=== PATIENT | female | born 1990 | race Caucasian/White ===

== ENCOUNTER → 2018-12-15 17:25 | Outpatient (CLI) | payer MEDICAID, SELFPAY | PROVIDERS: Visit Provider Nurse Practitioner Obstetrics & Gynecology | DX: Z01.419 Encounter for gynecological examination (general) (routine) without abnormal findings (principal) | CPT/HCPCS: 87086; 87088; 87186 ==

== ENCOUNTER → 2021-09-30 10:59 | Outpatient (CLI) | payer MEDICAID, SELFPAY ==
--- NOTE | 2021-09-30 10:59 | US_ITS ---
FINAL REPORT CLINICAL HISTORY: Right upper quad pain/ nausea FINDINGS: Sonographic images of the right upper quadrant were obtained. The pancreas is partially obscured. The liver has increased echogenicity consistent with mild fatty infiltration. There are multiple echogenic foci within the gallbladder consistent with multiple gallstones. There is no evidence of biliary ductal dilatation.The common duct measures 3 mm. Limited images of the right kidney are unremarkable. IMPRESSION: Mild fatty infiltration of the liver. Multiple gallstones within the gallbladder. Reviewed, Interpreted and Dictated by Dieter Arenas III, MD Transcribed by Debbie Zepeda Authenticated by Dieter Arenas III, MD on 09/30/2021 01:14:22 PM [facility]
== END ==
PROVIDERS: PCP Nurse Practitioner Family; Visit Provider Surgery
DX: R10.11 Right upper quadrant pain (principal)
CPT/HCPCS: 76705

== ENCOUNTER → 2021-10-19 14:30 | Outpatient (CLI) | payer MEDICAID, SELFPAY ==
[2021-10-19 16:45] LABS: Basophils # 0.1 K/mm3 (0-0.2); Basophils % 1.4 % (0.1-2.0); Eosinophils # 0.1 K/mm3 (0.0-0.4); Eosinophils % 1.2 % (0.1-12.0); Hematocrit 42.1 % (37.0-47.0); Hemoglobin 13.9 g/dL (12.2-16.2); Lymphocytes # 4.1 K/mm3 (0.7-4.5); Lymphocytes % 58.9 % (10-50); Mean Corpuscular HGB Conc 33.1 g/dL (31.8-35.4); Mean Corpuscular Hemoglobin 33.2 pg (27.0-31.2); Mean Corpuscular Volume 100.3 fl (81-99); Mean Platelet Volume 8.3 fl (7.4-10.4); Monocytes # 0.2 K/mm3 (0.1-1.0); Monocytes % 3.1 % (1.7-9.3); Neutrophils # 2.5 K/mm3 (1.8-7.8); Neutrophils % 35.4 % (37.0-80.0); Platelet Count 212 K/mm3 (142-424); Red Cell Distribution Width 14.6 % (11.5-17.5)
[2021-10-19 16:49] LABS: MANUAL DIFFERENTIAL MANUAL DIFFERENTIAL (MANUAL DIFF)
[2021-10-19 17:00] LABS: Urine Pregnancy, HCG Qual. Negative (Negative)
[2021-10-19 17:03] LABS: Chloride 105 mmol/L (98-107); Potassium 3.8 mmoL/L (3.5-5.1); Sodium 137 mmol/L (136-145)
[2021-10-19 17:05] LABS: Blood Urea Nitrogen 5 mg/dl (7-17); Estimated Glomerular Filt Rate 117 ml/min (>60); GFR (African American) 142 ML/MIN (>60)
[2021-10-19 17:06] LABS: Alanine Aminotransferase 30 U/L (12-78); Albumin Level 4.2 g/dl (3.5-5.0); Albumin/Globulin Ratio 1.3 (1.1-1.8); Alkaline Phosphatase 99 U/L (38-126); Anion Gap 10.8 mEq/L (5-15); Aspartate Amino Transferase 31 U/L (14-36); Bilirubin,Total 0.6 mg/dl (0.2-1.3); Calcium 8.7 mg/dl (8.4-10.2); Carbon Dioxide 25 mmol/L (22.0-30.0); Globulin 3.2 g/dL (1.3-3.2); Glucose 96 mg/dl (74-100); Lipase 91 U/L (23-300); Total Protein,Serum 7.4 g/dl (6.3-8.2)
[2021-10-19 18:06] LABS: Lymphocytes % 61 % (10-50); Macrocytosis 1+; Monocytes % 1 % (2-9); Neutrophils % 36 % (42-76); Platelet Estimate Normal; Total Cells Counted 100
== END ==
PROVIDERS: PCP Family Medicine; Visit Provider Surgery
DX: Z01.812 Encounter for preprocedural laboratory examination (principal); K80.20 Calculus of gallbladder without cholecystitis without obstruction
CPT/HCPCS: 36415; 80053; 81025; 83690; 85007; 85025

== ENCOUNTER → 2022-04-17 06:27 | Outpatient (CLI) | payer MEDICAID, SELFPAY | PROVIDERS: Visit Provider Obstetrics & Gynecology | DX: N39.0 Urinary tract infection, site not specified (principal); B96.29 Other Escherichia coli [E. coli] as the cause of diseases classified elsewhere | CPT/HCPCS: 87086; 87088; 87186 ==

== ENCOUNTER → 2022-04-22 11:54 | Outpatient (CLI) | payer MEDICAID, SELFPAY ==
[2022-04-22 12:34] LABS: Basophils # 0.1 K/mm3 (0-0.2); Basophils % 1.4 % (0.1-2.0); Eosinophils # 0.1 K/mm3 (0.0-0.4); Eosinophils % 0.9 % (0.1-12.0); Hematocrit 41.5 % (37.0-47.0); Hemoglobin 13.2 g/dL (12.2-16.2); Lymphocytes # 3.9 K/mm3 (0.7-4.5); Lymphocytes % 60.6 % (10-50); Mean Corpuscular HGB Conc 31.9 g/dL (31.8-35.4); Mean Corpuscular Hemoglobin 32.5 pg (27.0-31.2); Mean Corpuscular Volume 101.8 fl (81-99); Mean Platelet Volume 8.4 fl (7.4-10.4); Monocytes # 0.2 K/mm3 (0.1-1.0); Monocytes % 2.6 % (1.7-9.3); Neutrophils # 2.2 K/mm3 (1.8-7.8); Neutrophils % 34.6 % (37.0-80.0); Platelet Count 199 K/mm3 (142-424); Red Blood Count 4.07 M/mm3 (4.20-5.40); Red Cell Distribution Width 14.7 % (11.5-17.5); White Blood Count 6.5 K/mm3 (4.8-10.8)
[2022-04-22 12:36] LABS: MANUAL DIFFERENTIAL MANUAL DIFFERENTIAL (MANUAL DIFF)
[2022-04-22 13:00] LABS: Hemoglobin A1C 5.1 % (4.0-6.0); Lymphocytes % 60 % (10-50); Monocytes % 5 % (2-9); Neutrophils % 35 % (42-76); Total Cells Counted 100
[2022-04-22 13:01] LABS: Platelet Estimate Normal; RBC Morphology Normal
[2022-04-22 13:11] LABS: Chloride 102 mmol/L (98-107); Potassium 3.9 mmoL/L (3.5-5.1); Sodium 139 mmol/L (136-145)
[2022-04-22 13:14] LABS: Alanine Aminotransferase 16 U/L (12-78); Albumin Level 4.3 g/dl (3.5-5.0); Albumin/Globulin Ratio 1.5 (1.1-1.8); Alkaline Phosphatase 96 U/L (38-126); Anion Gap 13.9 mEq/L (5-15); Aspartate Amino Transferase 23 U/L (14-36); Bilirubin,Total 0.4 mg/dl (0.2-1.3); Blood Urea Nitrogen 8 mg/dl (7-17); Carbon Dioxide 27 mmol/L (22.0-30.0); Estimated Glomerular Filt Rate 98 ml/min (>60); GFR (African American) 118 ML/MIN (>60); Globulin 2.8 g/dL (1.3-3.2); Glucose 101 mg/dl (74-100); Total Protein,Serum 7.1 g/dl (6.3-8.2)
== END ==
PROVIDERS: PCP Family Medicine; Visit Provider Obstetrics & Gynecology
DX: R35.0 Frequency of micturition (principal); K80.20 Calculus of gallbladder without cholecystitis without obstruction
CPT/HCPCS: 36415; 80053; 83036; 85007; 85025

== ENCOUNTER → 2022-05-24 11:55 | Outpatient (CLI) | payer MEDICAID, SELFPAY ==
[2022-05-24 12:14] LABS: Basophils % 0.4 % (0.1-2.0); Eosinophils # 0.1 K/mm3 (0.0-0.4); Eosinophils % 0.9 % (0.1-12.0); Hematocrit 41.1 % (37.0-47.0); Hemoglobin 13.1 g/dL (12.2-16.2); Lymphocytes # 3.7 K/mm3 (0.7-4.5); Lymphocytes % 60.4 % (10-50); Mean Corpuscular HGB Conc 31.9 g/dL (31.8-35.4); Mean Corpuscular Hemoglobin 32.5 pg (27.0-31.2); Mean Platelet Volume 8.9 fl (7.4-10.4); Monocytes # 0.2 K/mm3 (0.1-1.0); Monocytes % 3.1 % (1.7-9.3); Neutrophils # 2.2 K/mm3 (1.8-7.8); Neutrophils % 35.2 % (37.0-80.0); Platelet Count 194 K/mm3 (142-424); Red Blood Count 4.03 M/mm3 (4.20-5.40); White Blood Count 6.2 K/mm3 (4.8-10.8)
[2022-05-24 12:19] LABS: MANUAL DIFFERENTIAL MANUAL DIFFERENTIAL (MANUAL DIFF)
[2022-05-24 12:39] LABS: Chloride 99 mmol/L (98-107); Lymphocytes % 74 % (10-50); Neutrophils % 26 % (42-76); Total Cells Counted 100
[2022-05-24 12:40] LABS: Potassium 4.1 mmoL/L (3.5-5.1); Sodium 138 mmol/L (136-145)
[2022-05-24 12:42] LABS: Alanine Aminotransferase 24 U/L (12-78); Anion Gap 16.1 mEq/L (5-15); Aspartate Amino Transferase 29 U/L (14-36); Blood Urea Nitrogen 11 mg/dl (7-17); Carbon Dioxide 27 mmol/L (22.0-30.0); Estimated Glomerular Filt Rate 117 ml/min (>60); GFR (African American) 141 ML/MIN (>60); Platelet Estimate Normal; RBC Morphology Normal
[2022-05-24 12:43] LABS: Albumin Level 4.1 g/dl (3.5-5.0); Albumin/Globulin Ratio 1.6 (1.1-1.8); Alkaline Phosphatase 86 U/L (38-126); Bilirubin,Total 0.4 mg/dl (0.2-1.3); Calcium 9.2 mg/dl (8.4-10.2); Globulin 2.6 g/dL (1.3-3.2); Glucose 85 mg/dl (74-100); Total Protein,Serum 6.7 g/dl (6.3-8.2)
[2022-05-24 13:06] LABS: HCG,Quantitative < 2 mIU/ml (0-5.42)
== END ==
PROVIDERS: PCP Obstetrics & Gynecology; Visit Provider Obstetrics & Gynecology
DX: R87.613 High grade squamous intraepithelial lesion on cytologic smear of cervix (HGSIL) (principal); Z01.812 Encounter for preprocedural laboratory examination
CPT/HCPCS: 36415; 80053; 84702; 85007; 85025

== ENCOUNTER 2023-08-27 14:53 | Outpatient (CLI) | payer MEDICAID, SELFPAY ==
[2023-08-27 15:51] LABS: Basophils % 0.4 % (0.1-2.0); Eosinophils # 0.1 K/mm3 (0.0-0.4); Eosinophils % 0.7 % (0.1-12.0); Hematocrit 37.1 % (37.0-47.0); Hemoglobin 12.9 g/dL (12.2-16.2); Lymphocytes # 4.6 K/mm3 (0.7-4.5); Lymphocytes % 63.2 % (10-50); Mean Corpuscular HGB Conc 34.9 g/dL (31.8-35.4); Mean Corpuscular Hemoglobin 32.8 pg (27.0-31.2); Mean Corpuscular Volume 94.1 fl (81-99); Mean Platelet Volume 8.6 fl (7.4-10.4); Monocytes # 0.3 K/mm3 (0.1-1.0); Monocytes % 3.4 % (1.7-9.3); Neutrophils # 2.3 K/mm3 (1.8-7.8); Neutrophils % 32.2 % (37.0-80.0); Platelet Count 184 K/mm3 (142-424); Red Blood Count 3.94 M/mm3 (4.20-5.40); Red Cell Distribution Width 14.8 % (11.5-17.5); White Blood Count 7.2 K/mm3 (4.8-10.8)
[2023-08-27 15:56] LABS: MANUAL DIFFERENTIAL MANUAL DIFFERENTIAL (MANUAL DIFF)
[2023-08-27 16:43] LABS: Lymphocytes % 58 % (10-50); Monocytes % 8 % (2-9); Neutrophils % 34 % (42-76); Total Cells Counted 100
[2023-08-27 16:44] LABS: Anisocytosis 1+; Macrocytosis 1+; Platelet Estimate Normal
[2023-08-27 16:54] LABS: Thyroid Stimulating Hormone 1.67 uIU/mL (0.465-4.68)
== END 2023-08-27 23:59 ==
LOC: LAB 14:54
PROVIDERS: PCP Nurse Practitioner Family; Visit Provider Obstetrics & Gynecology
DX: N93.9 Abnormal uterine and vaginal bleeding, unspecified (principal); Z79.899 Other long term (current) drug therapy
CPT/HCPCS: 36415; 84443; 85007; 85025

== ENCOUNTER 2023-09-01 14:01 | Outpatient (CLI) | payer MEDICAID, SELFPAY ==
--- NOTE | 2023-09-01 14:02 | US_ITS ---
PROCEDURE: US TRANSVAGINAL CLINICAL INDICATION: abnormal uterine bleeding COMPARISON: No exams were available for comparison FINDINGS: Transvaginal sonographic images of the pelvis were obtained. UTERUS: 6.9 cm x 3.2cmx 2.9 cm anteverted with a combined endometrial thickness of 7mm. LEFT OVARY: 2.7x1.9 cm. There is a follicle in the left ovary measuring 2.1 cm x 1.7 cm x 1.8 cm. RIGHT OVARY: 2.2cmx 1.9 cmx1.4cm with a volume of 3.1ml. Both ovaries are seen and appear normal. Doppler flow to both ovaries are seen. There is no fluid in the cul-de-sac. IMPRESSION: 1. Anteverted uterus normal in shape and size. The endometrium is normal thickness. 2. Both ovaries are seen and appear normal. There is a 2.1 cm follicle on the left ovary. 3. No fluid in the cul-de-sac. Dictated by: Timoteo Bhandari MD 09/01/2023 15:58 Timoteo Bhandari MD in [place] 09/01/2023 15:58
== END 2023-09-01 23:59 ==
LOC: RAD 14:02
PROVIDERS: PCP Nurse Practitioner Family; Visit Provider Obstetrics & Gynecology
DX: N93.9 Abnormal uterine and vaginal bleeding, unspecified (principal)
CPT/HCPCS: 76830

== ENCOUNTER 2023-10-13 16:47 | Emergency (ER) | payer MEDICAID, SELFPAY ==
[2023-10-13 17:05] VITALS: BP 152/89; PULSE 115; RESP 18; TEMP 36.8; O2SAT 97; BMI 36.6
--- NOTE | 2023-10-13 17:33 | EXP.UTC ---
Discharge Plan Disposition Patient Disposition: Home, Self-Care Condition: Good Prescriptions Prescriptions: New amoxicillin-pot clavulanate 875-125 mg Tablet 1 tab PO Q12H 7 Days Qty: 14 0RF No Action quetiapine 50 mg tablet 50 mg PO HS Patient Comments: TAKE 1 TABLET BY MOUTH ONCE DAILY AT BEDTIME FOR 30 DAYS aripiprazole 10 mg tablet 10 mg PO DAILY buspirone 7.5 mg tablet 7.5 mg PO BID hydroxyzine pamoate 50 mg capsule 50 mg PO BID PRN (Reason: .) Patient Comments: TAKE 1 CAPSULE BY MOUTH TWICE DAILY NEEDED FOR ANXIETY AND PANIC ATTACKS cetirizine 10 mg tablet 10 mg PO DAILY sertraline 50 mg tablet 50 mg PO DAILY Lo Loestrin Fe 1 mg-10 mcg (24)/10 mcg (2) tablet 1 tab PO DAILY Qty: 84 3RF pantoprazole 40 mg tablet,delayed release (DR/EC) 40 mg PO DAILY Patient Comments: TAKE 1 TABLET BY MOUTH ONCE DAILY FOR 90 DAYS Referrals Follow up/Referrals: Bernard Zepeda APRN [Primary Care Provider] - See instructions Activity Restrictions/Add. Instructions Additional Instructions/Restrictions: Keep wounds clean and dry Take antibiotics as prescribed Follow up with your Family Doctor if any signs of infection including but not limited too redness, drainage, streaks Clinical Impressions Clinical Impression: Animal bite Instructions Patient Instructions: DI for Animal Bites, DI for Dog Bite Dis[place] ED [place] Vallada[place] [facility] [place] Stated complaint: AO 10/13/23 bite by a dog Mode of Arrival: Ambulatory Source of Information: Patient Limitations: No Limitations Time Seen by Provider: 10/13/23 17:33 Description of Symptoms (Recalled from Triage Doc. by RN): Pt was walking down the street and was attacked by two dogs. She has abrasions on back of left leg. HEENT Symptoms (Recalled from RN notes): No Resp Symptoms (Recalled from RN notes): No Skin Symptoms (Recalled from RN notes): Yes MS Symptoms (Recalled from RN notes): No Functional Status (Recalled from RN notes): n/a History of Present Illness Provider Complaint: Patient states that she was walking on the road when neighbor let out his two dogs and they came at her and she was trying to climb a pole to get away and they bite her several times on her left calf area and has an abrasion on her right ankle States that she wasnt sure when her last tetanus was and she wanted someone to look at it states that she only had minimal bleeding Related Data Home Medications Medication Instructions Recorded Confirmed aripiprazole 10 mg tablet 10 mg PO DAILY 08/27/23 10/13/23 buspirone 7.5 mg tablet 7.5 mg PO BID 08/27/23 10/13/23 cetirizine 10 mg tablet 10 mg PO DAILY 08/27/23 10/13/23 hydroxyzine pamoate 50 mg capsule 50 mg PO BID PRN . 08/27/23 10/13/23 quetiapine 50 mg tablet 50 mg PO HS 08/27/23 10/13/23 sertraline 50 mg tablet 50 mg PO DAILY 09/25/23 10/13/23 pantoprazole 40 mg tablet,delayed 40 mg PO DAILY 10/13/23 10/13/23 release Previous Rx's Medication Instructions Recorded Lo Loestrin Fe 1 mg-10 mcg (24)/10 1 tab PO DAILY #84 tabs 09/25/23 mcg (2) tablet (norethindrone-e.estradiol-iron) amoxicillin 875 mg-potassium 1 tab PO Q12H 7 days #14 tabs 10/13/23 clavulanate 125 mg tablet Allergies Allergy/AdvReac Type Severity Reaction Status Date / Time lavender (Lavandula Allergy Unknown Verified 10/13/23 17:25 angustifolia) latex Allergy Verified 10/13/23 17:25 Worker's Comp Is this a Worker's Comp case?: No [facility] Disclaimer: The information contained in this section may have been updated after the patient was seen, as this information can be updated by other users. Medical History Abnormal uterine bleeding Anxiety and depression HSIL (high grade squamous intraepithelial lesion) on Pap smear of cervix Pap smear of cervix with ASCUS, cannot exclude HGSIL Increased urinary frequency Surgical History Hx of wisdom tooth extraction Family History Other Family history of anxiety disorder Family history of depression Family history of diabetes mellitus Family history of essential hypertension Social History Smoking Status: Current every day smoker alcohol intake: never substance use type: denies use current occupational status: employed and unemployed Travel in the last 8 weeks: None ROS Obtained: Yes All systems reviewed & no additional complaints except as documented and Yes Systems reviewed as appropriate & no additional complaints except as documented Constitutional Constitutional: Reports system reviewed and no additional complaints, except as documented and Reports as per HPI ENT Ears, Nose, Mouth, and Throat: Reports system reviewed and no additional complaints, except as documented and Reports as per HPI Cardiovascular Cardiovascular: Reports system reviewed and no additional complaints, except as documented and Reports as per HPI Respiratory Respiratory: Reports system reviewed and no additional complaints, except as documented and Reports as per HPI Gastrointestinal Gastrointestingal: Reports system reviewed and no additional complaints, except as documented and as per HPI Musculoskeletal Musculoskeletal: Reports system reviewed and no additional complaints, except as documented and Reports as per HPI Integumentary/Breasts Skin/Breast: Reports system reviewed and no additional complaints, except as documented and Reports as per HPI Comments: dog bites on her left calf and upper leg and abrasion on her right ankle from dog attack Physical Exam General General appearance: alert and in no apparent distress ENT ENT exam: Present mucous membranes moist Respiratory Respiratory exam: Present normal lung sounds bilaterally; Absent respiratory distress or wheezes Cardiovascular Cardiovascular exam: Present regular rate, normal rhythm and normal heart sounds Neurological Exam Neurological exam: Present alert, oriented X3 and normal gait Skin Skin exam: Present other Expanded Skin Exam Body image: 1. small bite noted no bleeding mild bruising and mild swelling 2. abrasion noted from dog bite noted no active bleeding 3. small superficial abrasion noted no bleeding Medical Decision Making Jim Inquiry Pt receiving controlled substance: No Jim was queried for this patient: No Vital Signs: 10/13/23 17:05 Temperature 98.2 F Temperature Source Oral Pulse Rate [Right Radial] 115 H Respiratory Rate 18 Blood Pressure [Right Arm] 152/89 H Blood Pressure Mean [Right Arm] 110 Blood Pressure Source [Right Arm] Automatic Cuff Blood Pressure Position [Right Arm] Sitting 02 Sat by Pulse Oximetry 97 Oxygen Delivery Method Room Air Radiology Data #1: Image(s): Tib/Fib Image Reviewed: Yes I have reviewed radiologist's interpretation FINDINGS: Bones/joints: There is no evidence of acute fracture or dislocation. Joint spaces appear preserved. Soft tissues: No significant soft tissue edema. No subcutaneous emphysema or radiopaque foreign bodies. IMPRESSION: No acute posttraumatic osseous injury. Medical Decision Narrative: Adacel tdap discussed with pharmacy to make sure latex free advised is latex free
--- NOTE | 2023-10-13 17:40 | XR_ITS ---
PROCEDURE INFORMATION: Exam: XR Left Tibia and Fibula Exam date and time: 10/13/2023 5:40 PM Age: 33 years old Clinical indication: Injury or trauma; Other: Dog bite; Laceration; Lower leg; Left; Foreign body involvement not specified TECHNIQUE: Imaging protocol: Radiologic exam of the left tibia and fibula. Views: 2 views. COMPARISON: No relevant prior studies available. FINDINGS: Bones/joints: There is no evidence of acute fracture or dislocation. Joint spaces appear preserved. Soft tissues: No significant soft tissue edema. No subcutaneous emphysema or radiopaque foreign bodies. IMPRESSION: No acute posttraumatic osseous injury.
[2023-10-13] MEDS: TET/DIPHTH/PERT-ADULT 0.5ML SYRINGE 0.5 ML IM (18:23)
[2023-10-13 18:46] VITALS: BP 152/89; PULSE 115; RESP 18; TEMP 36.8; O2SAT 97
== END 2023-10-13 18:45 | disposition home or self-care (01) ==
PROVIDERS: Emergency Provider Nurse Practitioner; PCP Nurse Practitioner Family
DX: S81.852A Open bite, left lower leg, initial encounter (principal); F17.210 Nicotine dependence, cigarettes, uncomplicated; W54.0XXA Bitten by dog, initial encounter; Z23 Encounter for immunization
CPT/HCPCS: 73590; 90471; 90715; 99204; 99212; G0463

== ENCOUNTER 2024-01-14 16:02 | Emergency (ER) | payer MEDICAID, SELFPAY ==
[2024-01-14 16:02] VITALS: BP 162/87; PULSE 122; RESP 18; TEMP 37; O2SAT 99; BMI 35.9
--- NOTE | 2024-01-14 16:08 | XR_ITS ---
PROCEDURE INFORMATION: Exam: XR Right Foot Exam date and time: 01/14/2024 4:34 PM Age: 33 years old Clinical indication: Injury or trauma; Fall; Blunt trauma; Foot; Right TECHNIQUE: Imaging protocol: Radiologic exam of the right foot. Views: 1 or 2 views. COMPARISON: CR XR TIBIA FIBULA RT 2V 01/14/2024 4:33 PM FINDINGS: Bones/joints: Normal. Soft tissues: Normal. IMPRESSION: No acute findings.
--- NOTE | 2024-01-14 16:08 | XR_ITS ---
PROCEDURE INFORMATION: Exam: XR Left Knee Exam date and time: 01/14/2024 4:37 PM Age: 33 years old Clinical indication: Injury or trauma; Fall; Blunt trauma; Knee; Left TECHNIQUE: Imaging protocol: Radiologic exam of the left knee. Views: 3 views. COMPARISON: CR XR TIBIA FIBULA LT 2V 10/13/2023 5:40 PM FINDINGS: Bones/joints: Normal. Soft tissues: Normal. IMPRESSION: No acute findings.
--- NOTE | 2024-01-14 16:08 | XR_ITS ---
PROCEDURE INFORMATION: Exam: XR Right Tibia and Fibula Exam date and time: 01/14/2024 4:33 PM Age: 33 years old Clinical indication: Injury or trauma; Fall; Blunt trauma; Lower leg; Right TECHNIQUE: Imaging protocol: Radiologic exam of the right tibia and fibula. Views: 2 views. COMPARISON: CR XR ANKLE RT MIN 3V 01/14/2024 4:32 PM FINDINGS: Bones/joints: Normal. Soft tissues: Normal. IMPRESSION: No acute findings.
--- NOTE | 2024-01-14 16:08 | XR_ITS ---
PROCEDURE INFORMATION: Exam: XR Left Knee Exam date and time: 01/14/2024 4:40 PM Age: 33 years old Clinical indication: Injury or trauma; Fall; Blunt trauma; Knee; Left TECHNIQUE: Imaging protocol: Radiologic exam of the left knee. Views: 1 or 2 views. COMPARISON: CR XR KNEE LT 3V 01/14/2024 4:37 PM FINDINGS: Bones/joints: The osseous structures appear intact with no evidence of acute fracture, dislocation, or malalignment. Joint spaces are preserved. No abnormal bone density or destructive lesions are noted. Soft tissues: Soft tissues appear unremarkable. IMPRESSION: At the time of imaging, there is no evidence for acute osseous abnormalities.
--- NOTE | 2024-01-14 16:08 | ED_ITS ---
<Statement entered by Sheila Clifford MD - 01/14/24 23:00> I was consulted by the JJ, and we discussed the complexity of the problems being addressed. I approved the treatment and management plan for this patient's care in the emergency department, thus performing a substantive portion of the medical decision making. Sheila Clifford MD, KIRILL, FACEP Discharge Plan Disposition Patient Disposition: Home, Self-Care Condition: Good Chief Complaint: Fall Prescriptions Prescriptions: No Action quetiapine 50 mg tablet 50 mg PO HS Patient Comments: TAKE 1 TABLET BY MOUTH ONCE DAILY AT BEDTIME FOR 30 DAYS aripiprazole 10 mg tablet 10 mg PO DAILY buspirone 7.5 mg tablet 7.5 mg PO BID hydroxyzine pamoate 50 mg capsule 50 mg PO BID PRN (Reason: .) Patient Comments: TAKE 1 CAPSULE BY MOUTH TWICE DAILY NEEDED FOR ANXIETY AND PANIC ATTACKS cetirizine 10 mg tablet 10 mg PO DAILY sertraline 50 mg tablet 50 mg PO DAILY Lo Loestrin Fe 1 mg-10 mcg (24)/10 mcg (2) tablet 1 tab PO DAILY Qty: 84 3RF pantoprazole 40 mg tablet,delayed release (DR/EC) 40 mg PO DAILY Patient Comments: TAKE 1 TABLET BY MOUTH ONCE DAILY FOR 90 DAYS amoxicillin-pot clavulanate 875-125 mg Tablet 1 tab PO Q12H 7 Days Qty: 14 0RF Activity Restrictions/Add. Instructions Additional Instructions/Restrictions: You may clean your abrasion with soap and water as needed place bacitracin or Neosporin over top for comfort. May take Tylenol alternating every 4 hours with Motrin as needed for pain and swelling. Follow-up with your PCP or return to ER for any worsening signs or symptoms as needed Clinical Impressions Clinical Impression: Right ankle sprain Qualifiers: Encounter type: initial encounter Involved ligament of ankle: unspecified ligament Qualified Code(s): S93.401A - Sprain of unspecified ligament of right ankle, initial encounter Abrasion of knee, left Qualifiers: Encounter type: initial encounter Qualified Code(s): S80.212A - Abrasion, left knee, initial encounter Instructions Patient Instructions: DI for Ankle Sprain, DI for Abrasion Discharge ED Provider: Sheila Clifford General Adult [facility] General Chief complaint: Fall Stated complaint: knee and ankle pain fall Time Seen by Provider: 01/14/24 16:08 History of Present Illness HPI narrative: Patient presents for evaluation of a fall. Patient states that she was walking to a local convenience store and tripped over the curb injuring her right ankle and skinning her left knee. Patient states it is difficult to bear weight on the right ankle and that her toes are numb . She denies striking her head loss of consciousness chest pain fever chills hemoptysis hematochezia melena nausea vomit diarrhea. Related Data Home Medications Medication Instructions Recorded Confirmed aripiprazole 10 mg tablet 10 mg PO DAILY 08/27/23 10/13/23 buspirone 7.5 mg tablet 7.5 mg PO BID 08/27/23 10/13/23 cetirizine 10 mg tablet 10 mg PO DAILY 08/27/23 10/13/23 hydroxyzine pamoate 50 mg capsule 50 mg PO BID PRN . 08/27/23 10/13/23 quetiapine 50 mg tablet 50 mg PO HS 08/27/23 10/13/23 sertraline 50 mg tablet 50 mg PO DAILY 09/25/23 10/13/23 pantoprazole 40 mg tablet,delayed 40 mg PO DAILY 10/13/23 10/13/23 release Previous Rx's Medication Instructions Recorded Lo Loestrin Fe 1 mg-10 mcg (24)/10 1 tab PO DAILY #84 tabs 09/25/23 mcg (2) tablet (norethindrone-e.estradiol-iron) amoxicillin 875 mg-potassium 1 tab PO Q12H 7 days #14 tabs 10/13/23 clavulanate 125 mg tablet Allergies Allergy/AdvReac Type Severity Reaction Status Date / Time lavender (Lavandula Allergy Unknown Verified 01/14/24 16:11 angustifolia) latex Allergy Verified 01/14/24 16:11 [facility] Disclaimer: The information contained in this section may have been updated after the patient was seen, as this information can be updated by other users. Medical History Abnormal uterine bleeding Anxiety and depression HSIL (high grade squamous intraepithelial lesion) on Pap smear of cervix Pap smear of cervix with ASCUS, cannot exclude HGSIL Increased urinary frequency Surgical History Hx of wisdom tooth extraction Family History Other Family history of anxiety disorder Family history of depression Family history of diabetes mellitus Family history of essential hypertension Social History Smoking Status: Current every day smoker alcohol intake: never substance use type: denies use current occupational status: employed and unemployed Travel in the last 8 weeks: None ROS Obtained: Yes Systems reviewed as appropriate & no additional complaints except as documented Physical Exam General General appearance: alert and in no apparent distress Respiratory Respiratory exam: Present normal lung sounds bilaterally Cardiovascular Cardiovascular exam: Present regular rate and normal rhythm Expanded Lower Extremity Exam Right: Ankle image: 2 1. Focal area of pain and edema but no bony deformity palpated current Top foot image: 2 1. Tender to palpations focally no obvious bony deformity palpated Left: Leg image: 2 1. Superficial abrasion and tenderness over the patella Neurological Exam Neurological exam: Present alert and oriented X3 Medical Decision Making Jim Inquiry Pt receiving controlled substance: No Vital Signs: 01/14/24 16:02 Temperature 98.6 F Temperature Source Oral Pulse Rate [Left Radial] 122 H Respiratory Rate 18 Blood Pressure [Right Arm] 162/87 H Blood Pressure Mean [Right Arm] 112 Blood Pressure Source [Right Arm] Automatic Cuff Blood Pressure Position [Right Arm] Sitting 02 Sat by Pulse Oximetry 99 Oxygen Delivery Method Room Air Lab Data Lab Results 01/14/24 16:20: Urine HCG, Qual Negative Orders (Tests/Meds): ED MEDICATIONS Discontinued Medications Generic Name Dose Route Start Last Admin Trade Name Alicia PRN Reason Stop Dose Admin Acetaminophen 1,000 mg 01/14/24 16:10 01/14/24 16:13 Acetaminophen 500mg Tab PO 01/14/24 16:11 1,000 mg ONCE ONE Administration Ibuprofen 800 mg 01/14/24 16:09 01/14/24 16:12 Ibuprofen 400 Mg Tablet PO 01/14/24 16:10 800 mg ONCE ONE Administration ORDERS Category Date Time Status Ankle XR -Right minimum 3 Views [XR ankle RT min 3V] Exams 01/14/24 16:08 Taken Stat Foot XR right 2 views [XR foot RT 2V] Stat Exams 01/14/24 16:08 Taken Knee XR left 3 views [XR knee LT 3V] Stat Exams 01/14/24 16:08 Taken Patella XR left 2 views [XR patella LT 2V] Stat Exams 01/14/24 16:08 Taken Tibia/fibula XR right 2 views [XR tibia fibula RT 2V] Exams 01/14/24 16:08 Taken Stat Urine , HCG Qual. Stat Lab 01/14/24 16:20 Completed Medical Decision Narrative: In summary patient is a 33-year-old female who presents to the emergency department for evaluation of a fall with right ankle pain and left knee pain. Patient is hemodynamically stable upon arrival, afebrile. Physical exam is remarkable for tenderness to palpation at the lateral malleolus and posteriorly to the same with edema and ecchymosis noted but no palpable bony deformity noted. Patient also has tenderness to palpation over the bridge of the foot but she has positive DP and PT that were marked by myself. Patient is neurovascular intact distally. Patient also has a superficial abrasion of the left knee but tenderness to palpation over the patella. Patella appears to be in normal position and appears to be intact grossly to exam.. Differential diagnosis includes ankle sprain versus fracture on the right and superficial abrasion versus possible fracture of the knee and/or patella of the left versus contusion. Initial workup will be conducted with plain film x-rays. Initial interventions include acetaminophen Motrin. Initial workup reviewed by me shows no acute fracture via my informal interpretation prior to radiology read. Upon repeat evaluation patient is able to ambulate without assistance. Given this patient is appropriate for discharge with follow-up with her PCP as needed return to ER for any worsening signs or symptoms. Critical Care Critical Care Time Critical Care Time: No
--- NOTE | 2024-01-14 16:08 | XR_ITS ---
PROCEDURE INFORMATION: Exam: XR Right Ankle Exam date and time: 01/14/2024 4:32 PM Age: 33 years old Clinical indication: Injury or trauma; Fall; Blunt trauma; Ankle; Right TECHNIQUE: Imaging protocol: Radiologic exam of the right ankle. Views: 3 or more views. COMPARISON: No relevant prior studies available. FINDINGS: Bones/joints: Multiple views were obtained. The osseous structures appear intact with no evidence of acute fracture, dislocation, or malalignment. Joint spaces are preserved. No abnormal bone density or destructive lesions are noted. Soft tissues: Soft tissue swelling is observed, and further clinical correlation is advised. IMPRESSION: At the time of imaging, the skeletal radiograph demonstrates no acute osseous abnormalities but does show soft tissue swelling.
[2024-01-14] MEDS: IBUPROFEN 400 MG TABLET 800 MG PO (16:12)
[2024-01-14] MEDS: ACETAMINOPHEN 500MG TAB 1000 MG PO (16:13)
[2024-01-14 16:31] LABS: Urine Pregnancy, HCG Qual. Negative (Negative)
--- NOTE | 2024-01-14 16:41 | PC.NURSE ---
PT TO XR
--- NOTE | 2024-01-14 16:55 | PC.NURSE ---
PT RETURNED FROM XR
--- NOTE | 2024-01-14 17:07 | PC.NURSE ---
AMBULATED PT IN THE RIVERA. TOLERATED WELL. PLACED QUINN WRAP ON FOOT PER PT REQUEST.
[2024-01-14 17:17] VITALS: BP 144/84; PULSE 80; RESP 16; TEMP 36.7
== END 2024-01-14 17:17 | disposition home or self-care (01) ==
PROVIDERS: Physician Assistant; Emergency Provider Student in an Organized Health Care Education/Training Program
DX: S93.401A Sprain of unspecified ligament of right ankle, initial encounter (principal); S80.212A Abrasion, left knee, initial encounter; W10.1XXA Fall (on)(from) sidewalk curb, initial encounter
CPT/HCPCS: 73560; 73562; 73590; 73610; 73620; 81025; 99284

== ENCOUNTER 2024-04-16 12:49 | Emergency (ER) | payer MEDICAID, SELFPAY ==
[2024-04-16 13:45] VITALS: BP 134/72; PULSE 102; RESP 20; TEMP 36.6; O2SAT 97; BMI 37.4
--- NOTE | 2024-04-16 14:25 | ED_ITS ---
Discharge Plan Disposition Patient Disposition: Home, Self-Care Condition: Good Prescriptions Prescriptions: New loratadine 10 mg tablet 10 mg PO DAILY Qty: 30 2RF No Action clindamycin phosphate 1 % solution 1 applic topical BID Qty: 30 0RF Rx Instructions: apply to area under arm as directed Referrals Follow up/Referrals: Bernard Zepeda APRN [Primary Care Provider] - See instructions Activity Restrictions/Add. Instructions Additional Instructions/Restrictions: Take medication as prescribed. For respiratory viral illness must be 24 hours fever free without use of medication and improvement of symptoms. Follow up with primary care if symptoms persist or worsen. Clinical Impressions Clinical Impression: Upper respiratory tract infection Qualifiers: URI type: unspecified URI Qualified Code(s): J06.9 - Acute upper respiratory infection, unspecified Instructions Patient Instructions: DI for Viral Upper Respiratory Infection -- Adult Print Language Print Language: Vietnamese Discharge ED Provider: Marie Sue [facility] [place] HPI General Stated complaint: cough, body aches Mode of Arrival: Ambulatory Source of Information: Patient Limitations: No Limitations Time Seen by Provider: 04/16/24 14:24 Description of Symptoms (Recalled from Triage Doc. by RN): Reports cough, congestion and body aches. 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 She reports that she started coughing and having a runny nose yesterday. She states that she is and not using much to help with her symptoms. Related Data Previous Rx's ?Medication ?Instructions ?Recorded clindamycin phosphate 1 % topical 1 applic topical BID #30 mL 03/20/24 solution loratadine 10 mg tablet 10 mg PO DAILY #30 tabs 04/16/24 Allergies Allergy/AdvReac Type Severity Reaction Status Date / Time lavender (Lavandula Allergy Unknown Verified 01/14/24 16:11 angustifolia) latex Allergy Verified 01/14/24 16:11 Worker's Comp Is this a Worker's Comp case?: No [facility] Disclaimer: The information contained in this section may have been updated after the patient was seen, as this information can be updated by other users. Medical History Abnormal uterine bleeding Anxiety and depression HSIL (high grade squamous intraepithelial lesion) on Pap smear of cervix Pap smear of cervix with ASCUS, cannot exclude HGSIL Increased urinary frequency Surgical History Hx of wisdom tooth extraction Family History Other Family history of anxiety disorder Family history of depression Family history of diabetes mellitus Family history of essential hypertension Social History Smoking Status: Current every day smoker alcohol intake: never substance use type: denies use current occupational status: employed and unemployed Travel in the last 8 weeks: None ROS Obtained: Yes All systems reviewed & no additional complaints except as documented Constitutional Constitutional: Reports system reviewed and no additional complaints, except as documented and Reports malaise Eyes Eyes: Reports system reviewed and no additional complaints, except as documented ENT Ears, Nose, Mouth, and Throat: Reports system reviewed and no additional complaints, except as documented, Reports nasal congestion and Reports nasal discharge Cardiovascular Cardiovascular: Reports system reviewed and no additional complaints, except as documented Respiratory Respiratory: Reports system reviewed and no additional complaints, except as documented and Reports non-productive cough Gastrointestinal Gastrointestingal: Reports system reviewed and no additional complaints, except as documented Genitourinary Female Genitourinary: Reports system reviewed and no additional complaints, except as documented Musculoskeletal Musculoskeletal: Reports system reviewed and no additional complaints, except as documented Integumentary/Breasts Skin/Breast: Reports system reviewed and no additional complaints, except as documented Neurologic Neurologic: Reports system reviewed and no additional complaints, except as documented Endocrine Endocrine: Reports system reviewed and no additional complaints, except as documented Hematologic/Lymphatic Henatologic/Lymphatic: Reports system reviewed and no additional complaints, except as documented Allergic/Immunologic Allergic/Immunologic: Reports system reviewed and no additional complaints, except as documented Physical Exam General General appearance: alert Comment: ill appearing Head Head exam: atraumatic and normocephalic Eye Eye exam: Present normal appearance ENT ENT exam: Present mucous membranes moist Expanded ENT Exam External ear exam: Present normal external inspection Nasal speculum exam: Bilateral: other (clear drainage) Mouth exam: Present normal external inspection Teeth exam: Present normal inspection Throat exam: Present normal inspection Neck Neck exam: Present normal inspection; Absent lymphadenopathy Chest Chest inspection: Present normal inspection and symmetric chest wall rise Respiratory Respiratory exam: Present normal lung sounds bilaterally Cardiovascular Cardiovascular exam: Present regular rate, normal rhythm and normal heart sounds Abdominal Exam Abdominal exam: Present soft Extremities Exam Extremities exam: Present normal inspection Back Exam Back exam: Present normal inspection Neurological Exam Neurological exam: Present alert and oriented X3 Psychiatric Psychiatric exam: Present normal affect and normal mood Skin Skin exam: Present warm, dry and intact Lymphatic Lymphatic Findings: no adenopathy Medical Decision Making Medical Records Screening: Per USPSTF and CDC recommendations, given the prevalence of disease in our region, it is our hospital?s policy to screen for HIV and viral Hepatitis for all patients aged 18 and over and those with ongoing risk factors. Jim Inquiry Pt receiving controlled substance: No Jim was queried for this patient: No Vital Signs: 04/16/24 13:45 Temperature 97.9 F Temperature Source Oral Pulse Rate [Radial] 102 H Respiratory Rate 20 Blood Pressure [Right Arm] 134/72 Blood Pressure Mean [Right Arm] 92 Blood Pressure Source [Right Arm] Automatic Cuff Blood Pressure Position [Right Arm] Sitting 02 Sat by Pulse Oximetry 97 Oxygen Delivery Method Room Air Orders (Tests/Meds): ORDERS Category Date Time Status Rapid PCR Covid and Flu A/B Stat Lab 04/16/24 14:02 Ordered
[2024-04-16 14:44] VITALS: BP 134/72; PULSE 102; RESP 20; TEMP 36.6; O2SAT 97
[2024-04-16 15:03] LABS: Coronavirus 19, PCR Not Detected (NotDetected); Influenza A, PCR Not Detected (NotDetected); Influenza B, PCR Not Detected (NotDetected)
== END 2024-04-16 14:44 | disposition home or self-care (01) ==
PROVIDERS: Emergency Provider Nurse Practitioner Family; PCP Nurse Practitioner Family
DX: O26.899 Other specified pregnancy related conditions, unspecified trimester (principal); R05.9 Cough, unspecified; J06.9 Acute upper respiratory infection, unspecified; Z3A.00 Weeks of gestation of pregnancy not specified
CPT/HCPCS: 87636; 99212; 99214; G0463

== ENCOUNTER 2024-05-13 14:36 | Emergency (ER) | payer MEDICAID, SELFPAY ==
--- NOTE | 2024-05-13 15:10 | ED_ITS ---
Discharge Plan Disposition Patient Disposition: Home, Self-Care Condition: Good Prescriptions Prescriptions: New cefdinir 300 mg capsule 300 mg PO BID Qty: 20 0RF No Action clindamycin phosphate 1 % solution 1 applic topical BID Qty: 30 0RF Rx Instructions: apply to area under arm as directed loratadine 10 mg tablet 10 mg PO DAILY Qty: 30 2RF Referrals Follow up/Referrals: Bernard Zepeda APRN [Primary Care Provider] - See instructions Activity Restrictions/Add. Instructions Additional Instructions/Restrictions: Drink plenty of fluids. Take tylenol or ibuprofen for pain or fever. Take the medications as directed. Follow up with your regular doctor. GO TO THE ER FOR ANY WORSENING SYMPTOMS Clinical Impressions Clinical Impression: Left otitis media Stand Alone Forms Stand Alone Forms: Work/School Release Instructions Patient Instructions: Middle Ear Infection Print Language Print Language: [place] Discharge ED Provider[place] Chas Coley [facility] [place] [facility] [place] General Stated complaint: red/painful knot behind left ear Time Seen by Provider: 05/13/24 15:10 Related Data Previous Rx's ?Medication ?Instructions ?Recorded clindamycin phosphate 1 % topical 1 applic topical BID #30 mL 03/20/24 solution loratadine 10 mg tablet 10 mg PO DAILY #30 tabs 04/16/24 cefdinir 300 mg capsule 300 mg PO BID #20 caps 05/13/24 Allergies Allergy/AdvReac Type Severity Reaction Status Date / Time lavender (Lavandula Allergy Unknown Verified 01/14/24 16:11 angustifolia) latex Allergy Verified 01/14/24 16:11 [facility] Disclaimer: The information contained in this section may have been updated after the patient was seen, as this information can be updated by other users. Medical History Abnormal uterine bleeding Anxiety and depression HSIL (high grade squamous intraepithelial lesion) on Pap smear of cervix Pap smear of cervix with ASCUS, cannot exclude HGSIL Increased urinary frequency Surgical History Hx of wisdom tooth extraction Family History Other Family history of anxiety disorder Family history of depression Family history of diabetes mellitus Family history of essential hypertension Social History Smoking Status: Current every day smoker alcohol intake: never substance use type: denies use current occupational status: employed and unemployed Travel in the last 8 weeks: None ROS Obtained: Yes All systems reviewed & no additional complaints except as documented Constitutional Constitutional: Denies chills, Reports fever(s) and Reports poor appetite Eyes Eyes: Denies eye discharge ENT Ears, Nose, Mouth, and Throat: Denies ear discharge, Reports otalgia, Denies hearing loss, Denies sinus pain and Reports sore throat Cardiovascular Cardiovascular: Denies chest pain and Denies dyspnea Respiratory Respiratory: Denies chest congestion, Reports cough and Denies dyspnea Gastrointestinal Gastrointestingal: Denies abdominal pain, diarrhea, nausea or vomiting Musculoskeletal Musculoskeletal: Denies arthralgias Integumentary/Breasts Skin/Breast: Denies rash Physical Exam General General appearance: alert and in no apparent distress Head Head exam: atraumatic, normocephalic and normal inspection Eye Eye exam: Present normal appearance; Absent PERRL or EOMI ENT ENT exam: Present mucous membranes moist and normal external ear exam Expanded ENT Exam TM/Canal exam: Bilateral TM: erythema, bulging and effusion Nose exam: Absent sinus tenderness Nasal speculum exam: Bilateral: normal Mouth exam: Present normal external inspection and other; Absent drooling Teeth exam: Present normal inspection Throat exam: Present tonsillar erythema and tonsillomegaly Neck Neck exam: Present normal inspection, full ROM and trachea midline; Absent tenderness, meningismus or lymphadenopathy Chest Chest inspection: Present normal inspection and symmetric chest wall rise; Absent tenderness Respiratory Respiratory exam: Present normal lung sounds bilaterally; Absent respiratory distress, wheezes or stridor Cardiovascular Cardiovascular exam: Present regular rate, normal rhythm and normal heart sounds; Absent tachycardia or irregular rhythm Abdominal Exam Abdominal exam: Present soft and normal bowel sounds; Absent distention, tenderness, guarding, rebound or rigidity Extremities Exam Extremities exam: Present normal inspection and normal capillary refill; Absent tenderness, joint swelling or calf tenderness Back Exam Back exam: Present normal inspection and full ROM; Absent tenderness, CVA tenderness (R) or CVA tenderness (L) Neurological Exam Neurological exam: Present alert, oriented X3, CN II-XII intact, normal gait and reflexes normal; Absent motor sensory deficit Psychiatric Psychiatric exam: Present normal affect and normal mood Skin Skin exam: Present warm, dry, intact and normal color Lymphatic Lymphatic Findings: no adenopathy Medical Decision Making Medical Records Medical records reviewed: No I reviewed the patient's medical records. Screening: Per USPSTF and CDC recommendations, given the prevalence of disease in our region, it is our hospital?s policy to screen for HIV and viral Hepatitis for all patients aged 18 and over and those with ongoing risk factors. Jim Inquiry Pt receiving controlled substance: No
[2024-05-13 15:15] VITALS: BP 152/77; PULSE 87; RESP 20; TEMP 36.5; O2SAT 99; BMI 40.3
[2024-05-13 15:53] VITALS: BP 152/77; PULSE 87; RESP 20; TEMP 36.5
== END 2024-05-13 15:54 | disposition home or self-care (01) ==
PROVIDERS: Emergency Provider Nurse Practitioner Family; PCP Nurse Practitioner Family
DX: H66.92 Otitis media, unspecified, left ear (principal)
CPT/HCPCS: 99212; G0381

== ENCOUNTER 2024-06-23 19:09 | Emergency (ER) | payer MEDICAID, SELFPAY ==
[2024-06-23 19:20] VITALS: BP 153/68; PULSE 106; RESP 22; TEMP 36.5; O2SAT 100; BMI 40.3
--- NOTE | 2024-06-23 19:35 | EXP.UTC ---
Discharge Plan Disposition Patient Disposition: Home, Self-Care Condition: Good Prescriptions Prescriptions: New ondansetron 4 mg tablet,disintegrating 4 mg PO Q8H PRN (Reason: nausea and vomiting) Qty: 10 0RF dicyclomine 10 mg capsule 10 mg PO TID PRN (Reason: abdominal pain/cramping) Qty: 9 0RF No Action aripiprazole 10 mg tablet 10 mg PO DAILY Patient Comments: TAKE 1 TABLET BY MOUTH ONCE DAILY IN THE MORNING FOR 30 DAYS Classic 28 mg iron- 800 mcg tablet 1 tab PO DAILY Patient Comments: TAKE 1 TABLET BY MOUTH ONCE DAILY Referrals Follow up/Referrals: Bernard Zepeda APRN [Primary Care Provider] - See instructions Activity Restrictions/Add. Instructions Additional Instructions/Restrictions: Drink extra fluids with and between meals. If you have difficulty drinking, try very small amounts of water or suck on ice chips. ? Avoid fruit juices, as these do not replace minerals and can actually increase diarrhea. ? Children and adults can use sports drinks to replenish electrolytes. Younger children and infants should use products formulated for children, like oral rehydration solutions. ? Eat food in small amounts and let your stomach recover. ? Get lots of rest. You may feel tired or weak. ? No greasy or fried foods for the next 24-48 hours BRAT diet Bananas Rice Apples and [place] ? Make sure to drink plenty of liquids ? Return if needed ? Straight to ER if any life threatening symptoms ? Zofran as prescribed ? You was given an outpatient order for diarrhea panel, please collect specimen and bring back to outpatient lab then call back to the [facility] or follow up with family doctor for results ? Follow up with family doctor in the next 48-72 hours if no improvement or any worsening of symptoms Clinical Impressions Clinical Impression: Nausea vomiting and diarrhea Stand Alone Forms Stand Alone Forms: Work/School Release Instructions Patient Instructions: Diarrhea, Nausea and Vomiting-Adult Print Language Print Language: Danish Discharge ED Provider: Sayda Valladares [facility] [place] HPI General Stated complaint: stomach ache DISLA chills Mode of Arrival: Ambulatory Source of Information: Patient Limitations: No Limitations Time Seen by Provider: 06/23/24 19:35 Description of Symptoms (Recalled from Triage Doc. by RN): PATIENT C/O DIARRHEA, STOMACH ACHE, AND VOMITED TWICE TODAY HEENT Symptoms (Recalled from RN notes): No Resp Symptoms (Recalled from RN notes): No Skin Symptoms (Recalled from RN notes): No MS Symptoms (Recalled from RN notes): No Functional Status (Recalled from RN notes): WNL History of Present Illness Provider Complaint: Patient states that several people at work has had a stomach bug States today she has been having nausea, vomited twice and had diarrhea States that she has had some cramping prior to diarrhea episodes but has still been eating and drinking State that work wanted her to come in and get checked Denies fever States that she has been having some cramping and diarrhea Related Data Home Medications ?Medication ?Instructions ?Recorded ?Confirmed aripiprazole 10 mg tablet 10 mg PO DAILY 06/23/24 06/23/24 vits no.126-ferrous fum 1 tab PO DAILY 06/23/24 06/23/24 28 mg iron-folic acid 800 mcg tablet (Classic ) Previous Rx's ?Medication ?Instructions ?Recorded dicyclomine 10 mg capsule 10 mg PO TID PRN abdominal 06/23/24 pain/cramping #9 caps ondansetron 4 mg disintegrating 4 mg PO Q8H PRN nausea and 06/23/24 tablet vomiting #10 tabs Allergies Allergy/AdvReac Type Severity Reaction Status Date / Time lavender (Lavandula Allergy Unknown Verified 01/14/24 16:11 angustifolia) latex Allergy Verified 01/14/24 16:11 Worker's Comp Is this a Worker's Comp case?: No [facility] Disclaimer: The information contained in this section may have been updated after the patient was seen, as this information can be updated by other users. Medical History Abnormal uterine bleeding Anxiety and depression HSIL (high grade squamous intraepithelial lesion) on Pap smear of cervix Pap smear of cervix with ASCUS, cannot exclude HGSIL Increased urinary frequency Surgical History Hx of wisdom tooth extraction Family History Other Family history of anxiety disorder Family history of depression Family history of diabetes mellitus Family history of essential hypertension Social History Smoking Status: Current every day smoker alcohol intake: never substance use type: denies use current occupational status: employed and unemployed Travel in the last 8 weeks: None ROS Obtained: Yes All systems reviewed & no additional complaints except as documented and Yes Systems reviewed as appropriate & no additional complaints except as documented Constitutional Constitutional: Reports system reviewed and no additional complaints, except as documented, Reports as per HPI, Denies body ache, Denies chills and Denies fever(s) ENT Ears, Nose, Mouth, and Throat: Reports system reviewed and no additional complaints, except as documented and Reports as per HPI Cardiovascular Cardiovascular: Reports system reviewed and no additional complaints, except as documented and Reports as per HPI Respiratory Respiratory: Reports system reviewed and no additional complaints, except as documented and Reports as per HPI Gastrointestinal Gastrointestingal: Reports system reviewed and no additional complaints, except as documented, as per HPI, cramping, diarrhea, nausea and vomiting Physical Exam General General appearance: alert and in no apparent distress ENT ENT exam: Present normal exam, normal oropharynx, mucous membranes moist and TM's normal bilaterally Respiratory Respiratory exam: Present normal lung sounds bilaterally; Absent respiratory distress or wheezes Cardiovascular Cardiovascular exam: Present regular rate, normal rhythm and normal heart sounds Abdominal Exam Abdominal exam: Present soft and normal bowel sounds; Absent distention, tenderness, guarding or rebound Neurological Exam Neurological exam: Present alert, oriented X3 and normal gait Medical Decision Making Medical Records Screening: Per USPSTF and CDC recommendations, given the prevalence of disease in our region, it is our hospital?s policy to screen for HIV and viral Hepatitis for all patients aged 18 and over and those with ongoing risk factors. Jim Inquiry Pt receiving controlled substance: No Jim was queried for this patient: No Vital Signs: 06/23/24 19:20 Temperature 97.7 F Temperature Source Oral Pulse Rate [Left Brachial] 106 H Respiratory Rate 22 Blood Pressure [Left Arm] 153/68 H Blood Pressure Mean [Left Arm] 96 Blood Pressure Source [Left Arm] Automatic Cuff Blood Pressure Position [Left Arm] Sitting 02 Sat by Pulse Oximetry 100 Oxygen Delivery Method Room Air Lab Data Lab results reviewed: Yes I reviewed the patient's lab results.
[2024-06-23 19:49] LABS: UTC Pregnancy Test, Urine Negative (Negative)
[2024-06-23 19:55] VITALS: BP 153/68; PULSE 106; RESP 22; TEMP 36.5; O2SAT 100
[2024-06-23] MEDS: ONDANSETRON 4MG ODT 4 MG SL (19:57)
== END 2024-06-23 20:02 | disposition home or self-care (01) ==
PROVIDERS: Emergency Provider Nurse Practitioner; PCP Nurse Practitioner Family
DX: R11.2 Nausea with vomiting, unspecified (principal); R19.7 Diarrhea, unspecified
CPT/HCPCS: 81025; 99213; G0381; Q0162

== ENCOUNTER 2024-06-30 17:13 | Emergency (ER) | payer MEDICAID, SELFPAY ==
[2024-06-30 17:35] VITALS: BP 121/78; PULSE 91; RESP 21; TEMP 36.8; O2SAT 98; BMI 39.9
--- NOTE | 2024-06-30 17:59 | EXP.UTC ---
Discharge Plan Disposition Patient Disposition: Home, Self-Care Condition: Good Prescriptions Prescriptions: New nystatin 100,000 unit/gram powder 1 applic topical TID Qty: 60 0RF Rx Instructions: apply to right armpit area as directed No Action Classic 28 mg iron- 800 mcg tablet 1 tab PO DAILY Patient Comments: TAKE 1 TABLET BY MOUTH ONCE DAILY Referrals Follow up/Referrals: Bernard Zepeda APRN [Primary Care Provider] - See instructions Liudmila Higgins MD [Referring] - See instructions Activity Restrictions/Add. Instructions Additional Instructions/Restrictions: Clean area with antibacterial soap and water Use powder on area as directed Follow up with Dermatology or your Family Doctor as discussed Clinical Impressions Clinical Impression: Skin yeast infection Stand Alone Forms Stand Alone Forms: Work/School Release Instructions Patient Instructions: Nystatin Topical, DI for Yeast Infection-Skin Print Language Print Language: German Discharge ED Provider: Sayda Valladares [facility] HPI General Stated complaint: rash on right side of chest and arm Mode of Arrival: Ambulatory Source of Information: Patient Limitations: No Limitations Time Seen by Provider: 06/30/24 17:59 Description of Symptoms (Recalled from Triage Doc. by RN): PATIENT C/O RASH TO RIGHT AXILLA AREA SINCE LAST WEEK HEENT Symptoms (Recalled from RN notes): No Resp Symptoms (Recalled from RN notes): No Skin Symptoms (Recalled from RN notes): Yes MS Symptoms (Recalled from RN notes): No Functional Status (Recalled from RN notes): WNL History of Present Illness Provider Complaint: Patient states that she has been having a red itchy burning like rash under her right armpit area for about a week States that today it was still bothering her so she came in to get it checked Related Data Home Medications ?Medication ?Instructions ?Recorded ?Confirmed vits no.126-ferrous fum 1 tab PO DAILY 06/23/24 06/30/24 28 mg iron-folic acid 800 mcg tablet (Classic ) Previous Rx's ?Medication ?Instructions ?Recorded nystatin 100,000 unit/gram topical 1 applic topical TID #60 grams 06/30/24 powder Allergies Allergy/AdvReac Type Severity Reaction Status Date / Time lavender (Lavandula Allergy Unknown Verified 01/14/24 16:11 angustifolia) latex Allergy Verified 01/14/24 16:11 Worker's Comp Is this a Worker's Comp case?: No PFSH PFSH Disclaimer: The information contained in this section may have been updated after the patient was seen, as this information can be updated by other users. Medical History Abnormal uterine bleeding Anxiety and depression HSIL (high grade squamous intraepithelial lesion) on Pap smear of cervix Pap smear of cervix with ASCUS, cannot exclude HGSIL Increased urinary frequency Surgical History Hx of wisdom tooth extraction Family History Other Family history of anxiety disorder Family history of depression Family history of diabetes mellitus Family history of essential hypertension Social History Smoking Status: Current every day smoker alcohol intake: never substance use type: denies use current occupational status: employed and unemployed Travel in the last 8 weeks: None Have you lived/traveled outside [place] in past 30 days?: No Contact w/someone who lives/traveled outside [place] past 30 days?: No Exposure to someone with infectious disease in past 14 days?: No Do you have a fever (greater than 100.4 F or 38 C)?: No Have you tested positive for COVID-19: No Exposed to someone with COVID-19 in past 14 days?: No Do you have a sore throat?: No Do you have a cough?: No Do you have any weakness?: No Do you have any diarrhea?: No Are you experiencing any unusual bleeding?: No Do you have any muscle aches/pain?: No Do you have any abdominal pain?: No Are you experiencing loss of taste or smell?: No ROS Obtained: Yes All systems reviewed & no additional complaints except as documented and Yes Systems reviewed as appropriate & no additional complaints except as documented Constitutional Constitutional: Reports system reviewed and no additional complaints, except as documented and Reports as per HPI ENT Ears, Nose, Mouth, and Throat: Reports system reviewed and no additional complaints, except as documented and Reports as per HPI Cardiovascular Cardiovascular: Reports system reviewed and no additional complaints, except as documented and Reports as per HPI Respiratory Respiratory: Reports system reviewed and no additional complaints, except as documented and Reports as per HPI Gastrointestinal Gastrointestingal: Reports system reviewed and no additional complaints, except as documented and as per HPI Integumentary/Breasts Skin/Breast: Reports system reviewed and no additional complaints, except as documented and Reports as per HPI Comments: red itchy burning like rash under right arm pit Physical Exam General General appearance: alert and in no apparent distress ENT ENT exam: Present mucous membranes moist Respiratory Respiratory exam: Present normal lung sounds bilaterally; Absent respiratory distress or wheezes Cardiovascular Cardiovascular exam: Present regular rate, normal rhythm and normal heart sounds Neurological Exam Neurological exam: Present alert, oriented X3 and normal gait Skin Skin exam: Present other (patient has hx of hiradenitis suppurativa has small lump like area noted also has red rash with irregular borders appears like yeast) Medical Decision Making Medical Records Screening: Per USPSTF and CDC recommendations, given the prevalence of disease in our region, it is our hospital?s policy to screen for HIV and viral Hepatitis for all patients aged 18 and over and those with ongoing risk factors. Jim Inquiry Pt receiving controlled substance: No Jim was queried for this patient: No Vital Signs: 06/30/24 17:35 Temperature 98.3 F Temperature Source Oral Pulse Rate [Left Brachial] 91 H Respiratory Rate 21 Blood Pressure [Left Arm] 121/78 Blood Pressure Mean [Left Arm] 92 Blood Pressure Source [Left Arm] Automatic Cuff Blood Pressure Position [Left Arm] Sitting 02 Sat by Pulse Oximetry 98 Oxygen Delivery Method Room Air
[2024-06-30 18:24] VITALS: BP 121/78; PULSE 91; RESP 21; TEMP 36.8; O2SAT 98
== END 2024-06-30 18:26 | disposition home or self-care (01) ==
PROVIDERS: Emergency Provider Nurse Practitioner; PCP Nurse Practitioner Family
DX: B37.2 Candidiasis of skin and nail (principal); R21 Rash and other nonspecific skin eruption
CPT/HCPCS: 99212; G0381

== ENCOUNTER 2024-07-16 13:45 | Emergency (ER) | payer MEDICAID, SELFPAY ==
[2024-07-16 15:17] VITALS: BP 124/57; PULSE 104; RESP 18; TEMP 36.8; O2SAT 99; BMI 39.0
--- NOTE | 2024-07-16 15:26 | ED_ITS ---
Discharge Plan Disposition Patient Disposition: Home, Self-Care Condition: Good Prescriptions Prescriptions: New oseltamivir [Tamiflu] 75 mg capsule 75 mg PO BID 5 Days Qty: 10 0RF [id number] [Bromfed DM] 2-30-10 mg/5 mL Syrup 5 ml PO Q6H PRN (Reason: Cough) Qty: 240 0RF ondansetron 4 mg Tablet,Disintegrating 4 mg PO Q8H PRN (Reason: Nausea) Qty: 12 0RF Referrals Follow up/Referrals: Bernard Zepeda APRN [Primary Care Provider] - See instructions Activity Restrictions/Add. Instructions Additional Instructions/Restrictions: Drink plenty of fluids. Take tylenol or ibuprofen for pain or fever. Take the medications as directed. Follow up with your regular doctor. GO TO THE ER FOR ANY WORSENING SYMPTOMS Clinical Impressions Clinical Impression: Influenza A Instructions Patient Instructions: Influenza, DI for Influenza -- Adult, Ondansetron, Oseltamivir Print Language Print Language: Burundian Discharge ED Provider: Chas Coley [facility] General Stated complaint: ba vomiting disla fever Mode of Arrival: Ambulatory Source of Information: Patient Time Seen by Provider: 07/16/24 15:26 Description of Symptoms (Recalled from Triage Doc. by RN): BODY ACHES, FEVER, COUGH, DISLA, N/V HEENT Symptoms (Recalled from RN notes): Yes Resp Symptoms (Recalled from RN notes): Yes Skin Symptoms (Recalled from RN notes): No MS Symptoms (Recalled from RN notes): No Functional Status (Recalled from RN notes): WNL Related Data Previous Rx's ?Medication ?Instructions ?Recorded [id number]-blyhuhkavocpkxp-[id number] 5 ml PO Q6H PRN Cough #240 mL 07/16/24 2 mg-30 mg-10 mg/5 mL oral syrup (Bromfed DM) ondansetron 4 mg disintegrating 4 mg PO Q8H PRN Nausea #12 tabs 07/16/24 tablet oseltamivir 75 mg capsule (Tamiflu) 75 mg PO BID 5 days #10 caps 07/16/24 Allergies Allergy/AdvReac Type Severity Reaction Status Date / Time lavender (Lavandula Allergy Unknown Verified 01/14/24 16:11 angustifolia) latex Allergy Verified 06/27/24 16:11 Worker's Comp Is this a Worker's Comp case?: No [facility] Disclaimer: The information contained in this section may have been updated after the patient was seen, as this information can be updated by other users. Medical History Abnormal uterine bleeding Anxiety and depression HSIL (high grade squamous intraepithelial lesion) on Pap smear of cervix Pap smear of cervix with ASCUS, cannot exclude HGSIL Increased urinary frequency Surgical History Hx of wisdom tooth extraction Family History Other Family history of anxiety disorder Family history of depression Family history of diabetes mellitus Family history of essential hypertension Social History Smoking Status: Current every day smoker alcohol intake: never substance use type: denies use current occupational status: employed and unemployed Travel in the last 8 weeks: None Have you lived/traveled outside [place] in past 30 days?: No Contact w/someone who lives/traveled outside [place] past 30 days?: No Exposure to someone with infectious disease in past 14 days?: No Do you have a fever (greater than 100.4 F or 38 C)?: Yes Have you tested positive for COVID-19: No Exposed to someone with COVID-19 in past 14 days?: No Do you have a sore throat?: No Do you have a cough?: Yes Do you have any weakness?: Yes Do you have any diarrhea?: No Are you experiencing any unusual bleeding?: No Do you have any muscle aches/pain?: Yes Do you have any abdominal pain?: No Are you experiencing loss of taste or smell?: No ROS Obtained: Yes All systems reviewed & no additional complaints except as documented Constitutional Constitutional: Reports chills and Reports fever(s) Eyes Eyes: Denies eye discharge ENT Ears, Nose, Mouth, and Throat: Reports as per HPI Cardiovascular Cardiovascular: Denies chest pain Respiratory Respiratory: Denies chest congestion and Reports cough Gastrointestinal Gastrointestingal: Reports nausea; Denies abdominal pain, constipation, cramping, diarrhea or vomiting Musculoskeletal Musculoskeletal: Denies arthralgias Integumentary/Breasts Skin/Breast: Denies rash Neurologic Neurologic: Denies paresthesias Physical Exam General General appearance: alert and in no apparent distress Eye Eye exam: Present normal appearance, PERRL and EOMI ENT ENT exam: Present mucous membranes moist and normal external ear exam Expanded ENT Exam External ear exam: Present normal external inspection TM/Canal exam: Bilateral TM: erythema and bulging Nose exam: Absent sinus tenderness Nasal speculum exam: Bilateral: normal Mouth exam: Present normal external inspection; Absent drooling Teeth exam: Present normal inspection Throat exam: Present tonsillar erythema and tonsillomegaly Neck Neck exam: Present normal inspection, full ROM and trachea midline; Absent tenderness, lymphadenopathy or thyromegaly Chest Chest inspection: Present normal inspection and symmetric chest wall rise; Absent tenderness or rash Respiratory Respiratory exam: Present normal lung sounds bilaterally; Absent respiratory distress, wheezes, stridor or accessory muscle use Cardiovascular Cardiovascular exam: Present regular rate, normal rhythm and normal heart sounds Abdominal Exam Abdominal exam: Present soft; Absent distention, tenderness, guarding, rebound or rigidity Extremities Exam Extremities exam: Present normal inspection, full ROM and normal capillary refill; Absent tenderness or calf tenderness Back Exam Back exam: Present normal inspection and full ROM; Absent tenderness Neurological Exam Neurological exam: Present alert and oriented X3 Psychiatric Psychiatric exam: Present normal affect and normal mood Skin Skin exam: Present warm, dry, intact and normal color Lymphatic Lymphatic Findings: no adenopathy Medical Decision Making Medical Records Medical records reviewed: No I reviewed the patient's medical records. Screening: Per USPSTF and CDC recommendations, given the prevalence of disease in our region, it is our hospital?s policy to screen for HIV and viral Hepatitis for all patients aged 18 and over and those with ongoing risk factors. Jim Inquiry Pt receiving controlled substance: No Vital Signs: 07/16/24 15:17 Temperature 98.3 F Temperature Source Oral Pulse Rate [Left Brachial] 104 H Respiratory Rate 18 Blood Pressure [Left Arm] 124/57 L Blood Pressure Mean [Left Arm] 79 02 Sat by Pulse Oximetry 99 Lab Data Lab results reviewed: Yes I reviewed the patient's lab results.
[2024-07-16 15:29] LABS: UTC Influenza A Antigen Positive (Negative); UTC Influenza B Antigen Negative (Negative)
[2024-07-16] MEDS: ONDANSETRON 4MG ODT 4 MG SL (15:45)
[2024-07-16 16:12] VITALS: BP 124/57; PULSE 104; RESP 18; TEMP 36.8
== END 2024-07-16 16:16 | disposition home or self-care (01) ==
PROVIDERS: Emergency Provider Nurse Practitioner Family; PCP Nurse Practitioner Family
DX: J09.X2 Influenza due to identified novel influenza A virus with other respiratory manifestations (principal)
CPT/HCPCS: 87804; 99213; G0381; Q0162

== ENCOUNTER 2025-02-15 17:56 | Outpatient (CLI) | payer MEDICAID, SELFPAY ==
--- OUTSIDE RECORDS SUMMARY | 2024-12-19 15:15 | XMS_ITS | Encounter Summary ---
[facility] Address [address] [id number] Care Team Providers Care Public Health Veterinarian Name Role Phone Moises Gaytan MD Primary Care Provider + Reason for Visit * Reason Comments MONUMENT SETTER / establish PCP Encounter Details Date Type Department Care Team (Late st Contact Info) Description 12/19/2024 3:15 PM EDT Office Visit [facility] [address] [place] [address] Moises Gaytan MD [address] [place] [address] Polyuria (Primary Dx); Polydipsia; Class 3 severe obesity due to excess calories without serious comorbidity with body mass index (BMI) of 40.0 to 44.9 in adult; Family history of diabetes mellitus; Loud snoring; Unrefreshed by sleep; Hypersomnolence; Screening cholesterol level Social History Tobacco Use Types Packs/Day Years Used Date Smoking Tobacco: Every Day Cigarettes Smokeless Tobacco: Never Tobacco Cessation:Ready to Q uit: No; Counseling Given: Not Answered Alcohol Use Standard Drinks/Week Comments Never 0 (1 standard drink = 0.6 oz pur e alcohol) PHQ-2 Answer Date Recorded Patient Health Questionnaire-9 Score 15 12/19/2024 Comments No Sex and Gender Information Value Date Recorded Sex Assigned at Not on file Legal Sex Female 9:58 AM EDT Gender Identity Not on file Sexual Orientation Not on file documented as of this encounter Last Filed Vital Signs Vital Sign Reading Time Taken Comments Blood Pressure 130/80 12/19/2024 2:17 PM EDT Pulse 104 12/19/2024 2:17 PM EDT Temperature 36.3 C (97.3 F) 12/19/2024 2:17 PM EDT Respiratory Rate 20 12/19/2024 2:17 PM EDT Oxygen Saturation 98% 12/19/2024 2:17 PM EDT Inhaled Oxygen Concentration - - Weight 116 kg (254 lb 12.8 oz) 12/19/2024 2:17 P M EDT Height 167.6 cm (5' 6 ) 12/19/2024 2:17 PM EDT Body Mass Index 41.13 12/19/2024 2:17 PM EDT documented in this encounter Functional Status documented as of this encounter Progress Notes * Moises Gaytan MD - 12/19/2024 3:15 PM EDT Images from the original note were not included. Chief Complaint Patient presents with MONUMENT SETTER / establish PCP Subjective Kelsie Wells is a 34 y.o. who presents for a visit to establish care. She has concerns about potential development of diabetes due to perceived symptoms of hypoglycemia along with polyuria, polydipsia, dry skin and visual changes. Her mother has diabetes. Sleep. 8 to 10 hours per night. Never feels rested upon awakening and can nap throughout the day ifallowed. Diet. Patient eats 1 meal per day and drinks excessive amounts of Mountain Dew Physical activity. ADLs and nonexercise activity through work. No formal exercise The following portions of the patient's history were reviewed and updated as appropriate: allergies, current medications, past family history, past medical history, past social history, past surgicalhistory, and problem list. Review of Systems Constitutional: Negative for unexpected weight gain and unexpected weight loss. Hypersomnolence, polydipsia HENT: Loud snoring Genitourinary: Polyuria All other systems reviewed and are negative. Objective Vital Signs: BP 130/80 Pulse 104 Temp 97.3 ??F (36.3 ??C) Resp 20 Ht 167.6 cm (66 ) Wt 116 kg (254 lb 12.8 oz) SpO2 98% BMI 41.13 kg/m?? Physical Exam Constitutional: General: She is not in acute distress. Appearance: Normal appearance. She is not ill-appearing. HENT: Head: Normocephalic and atraumatic. Right Ear: Tympanic membrane and ear canal normal. Left Ear: Tympanic membrane and ear canal normal. Nose: Nose normal. Mouth/Throat: Mouth: Mucous membranes are moist. Pharynx: Oropharynx is clear. No posterior oropharyngeal erythema. Eyes: Extraocular Movements: Extraocular movements intact. Conjunctiva/sclera: Conjunctivae normal. Pupils: Pupils are equal, round, and reactive to light. Cardiovascular: Rate and Rhythm: Normal rate and regular rhythm. Pulses: Normal pulses. Heart sounds: Normal heart sounds. Pulmonary: Effort: Pulmonary effort is normal. No respiratory distress. Breath sounds: Normal breath sounds. Abdominal: General: Abdomen is flat. Bowel sounds are normal. Palpations: Abdomen is soft. Tenderness: There is no abdominal tenderness. Musculoskeletal: General: Normal range of motion. Cervical back: Normal range of motion and neck supple. Lymphadenopathy: Cervical: No cervical adenopathy. Skin: General: Skin is warm and dry. Capillary Refill: Capillary refill takes less than 2 seconds. Neurological: General: No focal deficit present. Mental Status: She is alert and oriented to person, place, and time. Mental status is at baseline. Cranial Nerves: No cranial nerve deficit. Sensory: No sensory deficit. Motor: No weakness. Psychiatric: Mood and Affect: Mood normal. Behavior: Behavior normal. Thought Content: Thought content normal. Judgment: Judgment normal. Result Review The following data was reviewed by: Moises Gaytan MD on 12/19/2024: UA 12/19/2024 14:48 Urinalysis Ketones, UA Negative Leukocytes, UA Trace Assessment and Plan Diagnoses and all orders for this visit: 1. Polyuria (Primary) - TSH Rfx On Abnormal To Free T4 - Hemoglobin A1c - Comprehensive Metabolic Panel - POC Urinalysis Dipstick 2. Polydipsia - TSH Rfx On Abnormal To Free T4 - Hemoglobin A1c - Comprehensive Metabolic Panel 3. Class 3 severe obesity due to excess calories without serious comorbidity with body mass index (BMI) of 40.0 to 44.9 in adult - CBC (No Diff) - Lipid Panel - TSH Rfx On Abnormal To Free T4 - Hemoglobin A1c - Comprehensive Metabolic Panel 4. Family history of diabetes mellitus - Hemoglobin A1c 5. Loud snoring 6. Unrefreshed by sleep 7. Hypersomnolence 8. Screening cholesterol level - Lipid Panel Plan 1. Investigation into potential diabetes will begin with laboratory assessment. Patient's excess weight puts her at increased risk along with her family history 2. Patient has signs and symptoms of obstructive sleep apnea. Await laboratory assessment but anticipate referral to [facility] 3. Patient's excess weight complicates all aspects of care and increases long- term risk of diabetes, cardiovascular disease, and multiple cancers. Weight loss is advised and you should begin with dietary modifications. The patient does have diabetes GLP-1 agonist will be utilized. Suspect some of patient's weight gain is also related to medication she has been prescribed over her years as she hasbeen on multiple mood stabilizing agents with weight gain as a side effect Follow Up No follow-ups on file. Patient was given instructions and counseling regarding her condition or for health maintenance advice. Please see specific information pulled into the AVS if appropriate. documented in this encounter Plan of Treatment Upcoming Encounters Date Type Department Care Team (Late st Contact Info) Description 03/23/2025 3:45 PM EDT Office Visit [facility] [address] [place] [address] Moises Gaytan MD [address] [place] [address] 03/27/2025 2:30 PM EDT Office Visit [facility] O[facility] [address] [place] [address] Stacy Ruiz, PLUMBING HARDWARE ASSEMBLER [address] [facility] [address] [place] [id number] 10/02/2025 11:00 AM EDT Office Visit [facility] O[facility] [address] [place] [address] Stacy Ruiz, PLUMBING HARDWARE ASSEMBLER [address] [facility] [address] [address] documented as of this encounter Procedures Procedure Name Priority Date/Time Associated Diagnosis Comments TSH RFX ON ABNORMAL TO FREE T4 Routine 12/19/2024 2:51 PM EDT Polyuria Polydipsia Class 3 severe obesity due to excess calories without serious comorbidity with body mass index (BMI) of 40.0 to 44.9 in adult CBC (NO DIFF) Routine 12/19/2024 2:51 PM EDT Class 3 severe obesity due to excess calories without serious comorbidity with body mass index (BMI) of 40.0 to 44.9 in adult HEMOGLOBIN A1C Routine 12/19/2024 2:51 PM EDT Polyuria Polydipsia Class 3 severe obesity due to excess calories without serious comorbidity with body mass index (BMI) of 40.0 to 44.9 in adult Family history of diabetes mellitus LIPID PANEL Routine 12/19/2024 2:51 PM EDT Class 3 severe obesity due to excess calories without serious comorbidity with body mass index (BMI) of 40.0 to 44.9 in adult Screening cholesterol level COMPREHENSIVE METABOLIC PANEL Routine 12/19/2024 2:51 PM EDT Polyuria Polydipsia Class 3 severe obesity due to excess calories without serious comorbidity with body mass index (BMI) of 40.0 to 44.9 in adult POCT URINALYSIS DIPSTICK, MANUAL Routine 12/19/2024 2:48 PM EDT Polyuria documented in this encounter Results * (ABNORMAL) Comprehensive Metabolic Panel (12/19/2024 2:51 PM EDT) Glucose 149(H) 70 - 99 mg/dL [facility] BUN 7 6 - 20 mg/dL [facility] Creatinine 0.73 0.57 - 1.00 mg/dL [facility] EGFR Result 111 >59 mL/min/1.7 3 [facility] BUN/Creatinine Ratio 10 9 - 23 [facility] Sodium 138 134 - 144 mmol/L [facility] Potassium 3.8 3.5 - 5.2 mmol/L [facility] Chloride 103 96 - 106 mmol/L [facility] Total CO2 20 20 - 29 mmol/L [facility] Calcium 9.2 8.7 - 10.2 mg/dL [facility] Total Protein 7.1 6.0 - 8.5 g/dL [facility] Albumin 4.3 3.9 - 4.9 g/dL [facility] Globulin 2.8 1.5 - 4.5 g/dL [facility] Total Bilirubin 0.5 0.0 - 1.2 mg/dL [facility] Alkaline Phosphatase 115 44 - 121 IU/L [facility] AST (SGOT) 31 0 - 40 IU/L [facility] ALT (SGPT) 38(H) 0 - 32 IU/L [facility] Blood 12/19/2024 2:51 PM EDT 12/19/2024 Narrative [facility] (AMBULATORY) - 12/20/2024 9:10 AM EDT Performed at: [address] [place] [id number] Live In Housekeeper: Ming Mackay PhD, Phone: [phone] Patient Fasting: Y Moises Gaytan MD LAB BLOOD ORDERABLES Fin al Result [facility] (AMBULATORY) [address] [place] [address], [facility] [address] [place] [address], * Hemoglobin A1c (12/19/2024 2:51 PM EDT) [facility] Hemoglobin A1C 5.5 4.8 - 5.6 % [facility] Comment: Prediabetes: 5.7 - 6.4 Diabetes: >6.4 Glycemic control for adults with diabetes: <7.0 Blood 12/19/2024 2:51 PM EDT 12/19/2024 Narrative [facility] (AMBULATORY) - 12/20/2024 9:10 AM EDT Performed at: - [facility] [place] [address] [place] [id number] Live In Housekeeper: Ming Mackay PhD, Phone: [phone] Patient Fasting: Y Moises Gaytan MD LAB BLOOD ORDERABLES Fin al Result Performing Organization Address [facility]/ZIP Co de Phone Number [facility] [address] [place] [address], [facility] [address] [place] [address], * TSH Rfx On Abnormal To Free T4 (12/19/2024 2:51 PM EDT) [facility] TSH 2.420 0.450 - 4.500 uIU/mL [facility] Blood 12/19/2024 2:51 PM EDT 12/19/2024 Narrative [facility] - 12/20/2024 9:10 AM EDT Performed at: - [facility] [place] [address] [place] [id number] Live In Housekeeper: Ming Mackay PhD, Phone: [phone] Patient Fasting: Y Moises Gaytan MD LAB BLOOD ORDERABLES Fin al Result Performing Organization Address [facility]/ZIP Co de Phone Number [facility] [address] [place] [address], [facility] [address] [place] [address], * (ABNORMAL) Lipid Panel (12/19/2024 2:51 PM EDT) Total Cholesterol 227(H) 100 - 199 mg/dL [facility] Triglycerides 221(H) 0 - 149 mg/dL [facility] HDL Cholesterol 29(L) >39 mg/dL [facility] VLDL Cholesterol [place] 41(H) 5 - 40 mg/dL [facility] LDL Chol Calc (NIH) 157(H) 0 - 99 mg/dL [facility] Blood 12/19/2024 2:51 PM EDT 12/19/2024 Narrative [facility] ([facility]) - 12/20/2024 9:10 AM EDT Performed at: [facility] [id number] Live In Housekeeper: Ming Mackay PhD, Phone: [phone] Patient Fasting: Y Moises Gaytan MD LAB BLOOD ORDERABLES Fin al Result Performing Organization Address [facility]/ZIP Co de Phone Number [facility] (AMBULATORY) [address] [place] [address], [facility] [address] [place] [address], * CBC (No Diff) (12/19/2024 2:51 PM EDT) [facility] WBC 7.4 3.4 - 10.8 x10E3/uL [facility] RBC 4.55 3.77 - 5.28 x10E6/uL [facility] Hemoglobin 13.8 11.1 - 15.9 g/dL [facility] Hematocrit 42.7 34.0 - 46.6 % [facility] MCV 94 79 - 97 fL [facility] MCH 30.3 26.6 - 33.0 pg [facility] MCHC 32.3 31.5 - 35.7 g/dL [facility] RDW 14.7 11.7 - 15.4 % [facility] Platelets 173 150 - 450 x10E3/uL [facility] Blood 12/19/2024 2:51 PM EDT 12/19/2024 Narrative [facility] ([facility]) - 12/20/2024 9:10 AM EDT Performed at: [facility] [id number] Live In Housekeeper: Ming Mackay PhD, Phone: [phone] Patient Fasting: Y Moises Gaytan MD LAB BLOOD ORDERABLES Fin al Result Performing Organization Address City/[facility]/ZIP Co de Phone Number [facility] ([facility]) [address] [place] [address], [place] [phone] [facility] [address] [place] [address], [place] [phone] * (ABNORMAL) POC Urinalysis Dipstick (12/19/2024 2:48 PM EDT) Color Red(A) Yellow, Straw, Dark Yellow, Kasia [facility] Clarity, UA Clear Clear [facility] Glucose, UA Negative Negative mg/dL [facility] Bilirubin Negative Negative [facility] Ketones, UA Negative Negative [facility] Specific [place] 1.015 1.005 - 1.030 [facility] Blood, UA 3+(A) Negative [facility] pH, Urine 6.0 5.0 - 8.0 [facility] Protein, POC 2+(A) Negative mg/dL [facility] Urobilinogen, UA Normal Normal, 0.2 E.U./dL [facility] Leukocytes Trace(A) Negative [facility] Nitrite, UA Negative Negative [facility] Urine 12/19/2024 2:48 PM EDT Moises Gaytan MD POINT OF CARE TEST ORDER JAYLEN Final Result [facility]
[address] [place] [address], documented in this encounter Visit Diagnoses Diagnosis Polyuria- Primary Polydipsia Class 3 severe obesity due to excess calories without serious comorbidity with body mass index (BMI) of 40.0 to 44.9 in adult Family history of diabetes mellitus Loud snoring Unrefreshed by sleep Hypersomnolence Hypersomnia, unspecified Screening cholesterol level Screening for lipoid disorders documented in this encounter Care Teams Public Health Veterinarian Relationship Specialty Start Date End Date Moises Gaytan MD [address] [place] [address] [place] [address] PCP - General Family Medicine 12/19/24 documented as of this encounter
--- OUTSIDE RECORDS SUMMARY | 2024-12-22 11:00 | XMS_ITS | Encounter Summary ---
[facility] [address] [place] [address] Care Team Providers Care Anatomic Pathology Assistant Name Role Phone Moises Gaytan MD Primary Care Provider + Reason for Visit * Reason Comments hpv vaccine Encounter Details Date Type Department Care Team (Latest Contact Info) Description 12/22/2024 11:00 AM EDT Clinical Support [facility] O[facility]YN [address] [place] [address] Immunization due (Primary Dx) Social History Tobacco Use Types Packs/Day Years Used Date Smoking Tobacco: Every Day Cigarettes Smokeless Tobacco: Never Alcohol Use Standard Drinks/Week Comments Never 0 [...] Sign Reading Time Taken Comments Blood Pressure - - Pulse - - Temperature - - Respiratory Rate - - Oxygen Saturation - - Inhaled Oxygen Concentration - - Weight - - Height 167.6 cm (5' 6 ) 12/22/2024 10:47 AM EDT Body Mass Index - - documented in this encounter Progress Notes * Rola Martinez MA - 12/22/2024 11:00 AM EDT HPV Injection Note Kelsie Wells is a 34 y.o. female here for counseling on HPV vaccination. Her LMP was having constant bleeding has appt Thursday for U/S. She has received and reviewed the Gardasil Information Sheet. Contraindications have been reviewed. Information Reviewed Rola Martinez MA reviewed the possible side effects of pain, swelling, itching at the injection site, fever, difficulty breathing and anaphylactic reactions. The visit involved 15 minutes of counseling on STD prevention and vaccine benefits. Injection Details Noted in the Immunization Activity. Future Injections Her next injection is in 4 months: April. Toleration Patient tolerated the injection well with no problems. Electronically Signed By: Rola Martinez MA 12/22/2024 documented in this encounter Plan of Treatment Upcoming Encounters Date Type Department Care Team (Late st Contact Info) Description 03/23/2025 3:45 PM EDT Office Visit [facility] [address] [place] [address] Moises Gaytan MD [address] [place] [address] 03/27/2025 2:30 PM EDT Office Visit [facility] O[facility] [address] [place] [address] Stacy Ruiz, LEVEL VIAL INSPECTOR [address] [address] 10/02/2025 11:00 AM EDT Office Visit [facility] O[facility] [address] [place] [address] Stacy Ruiz, LEVEL VIAL INSPECTOR [address] [id number] documented as of this encounter Visit Diagnoses Diagnosis Immunization due- Primary documented in this encounter Care Teams Anatomic Pathology Assistant Relationship Specialty Start Date End Date Moises Gaytan MD [address] [place] [address] PCP - General Family Medicine 12/19/24 documented as of this encounter
--- OUTSIDE RECORDS SUMMARY | 2024-12-26 14:30 | XMS_ITS | Encounter Summary ---
[facility] Address [address] [place] [address] Care Team Providers Care Proofer Black And White Name Role Phone Moises Gaytan MD Primary Care Provider + Reason for Referral * Diagnostic Imaging (Routine) - Closed Specialty Diagnoses / Procedures Referred By Contac t Referred To Contact Obstetrics and Gynecology Diagnoses Abnormal uterine bleeding (AUB) Procedures US Non-ob Transvaginal Stacy Ruiz APRN [address] [place] [address] Phone: tel: fax: [facility] [address] [place] [address] Phone: tel:[phone] fax:[phone] Referral ID Status Reason Start Date Expiration Date Visits Re quested Visits Authorized [id number] Closed 12/26/2024 03/27/2026 1 1 Reason for Visit * Diagnostic Imaging (Routine) - Closed Specialty Diagnoses / Procedures Referred By Contac t Referred To Contact Obstetrics and Gynecology Diagnoses Abnormal uterine bleeding (AUB) Procedures US Non-ob Transvaginal Stacy Ruiz APRN [address] [address] Phone: tel: fax: [facility] [address] [facility] [place] [address] Phone: tel:[phone] fax:[phone] Referral ID Status Reason Start Date Expiration Date Visits Re quested Visits Authorized [id number] Closed 12/26/2024 03/27/2026 1 1 Encounter Details Date Type Department Care Team (Latest Contact Info) Description 12/26/2024 2:30 PM EDT Ancillary Procedure [facility] [place] [address] Abnormal uterine bleeding (AUB) (Primary Dx) Social History Tobacco Use Types [...] on file documented as of this encounter Plan of Treatment Upcoming Encounters Date Type Department Care Team (Late st Contact Info) Description 03/23/2025 3:45 PM EDT Office Visit [facility] [address] [place] [address] Moises Gaytan MD [address] [place] [address] 03/27/2025 2:30 PM EDT Office Visit [facility] [address] [place] [address] Stacy Ruiz, HORSE BREAKER [address] [address] 10/02/2025 11:00 AM EDT Office Visit [facility] [address] [place] [address] Stacy Ruiz Castro, HORSE BREAKER [address] [place] [address] documented as of this encounter Procedures Procedure Name Priority Date/Time Associated Diagnosis Comments US NON-OB TRANSVAGINAL Routine 12/26/2024 3:01 PM EDT Abnormal uterine bleeding (AUB) documented in this encounter Results * US Non-ob Transvaginal (12/26/2024 3:01 PM EDT) Anatomical Region Laterality Modality Body Ultrasound 12/26/2024 2:28 PM EDT Narrative 12/31/2024 12:54 PM EDT PAT NAME: RJ [facility]ATER [facility] REC#: [id number] DA: [id number] PAT GEND: F PAT TYPE: O EXAM BOBBY: [id number] REF PHYS RUIZ, STACY Indication ======== Abnormal Uterine Bleeding. BMI 41. Comparison Studies There are no relevant prior studies to which this study is being compared Method ======= Voluson E6, Transvaginal ultrasound examination, 3D ultrasound examination. View: Limited view due to patient body habitus Uterus ====== Uterus: Visualized Uterus position: Anteverted Description of uterine malformations: none Myometrium: Homogeneous Endometrium: Uniform Cervix details: Nabothian cyst noted Uterus long 69 mm Uterus ap 23 mm Uterus tr 33 mm Uterus Vol 27.6 cm Endometrial thickness, total 9.8 mm Right Ovary Rt ovary: Poorly seen Rt ovary D1 32.9 mm Rt ovary D2 24.0 mm Rt ovary D3 20.2 mm Rt ovary Vol 8.4 cm Rt ovarian follicle D1 13.5 mm Rt ovarian follicle D2 10.3 mm Rt ovarian follicle D3 14.5 mm Rt ovarian follicle mean 12.8 mm Rt ovarian follicle vol 1.058 cm Rt ovarian follicle findings: anechoic Left Ovary ========= Lt ovary: Visualized Lt ovary D1 25.4 mm Lt ovary D2 17.6 mm Lt ovary D3 18.70 mm Lt ovary Vol 4.4 cm Lt ovarian cyst D1 19.2 mm Lt ovarian cyst D2 13.9 mm Lt ovarian cyst D3 13.5 mm Lt ovarian cyst mean 15.5 mm Lt ovarian cyst vol 1.886 cm Lt ovarian cyst findings: anechoic cyst/follicle Cul de Sac Visualized. No free fluid visualized Impression The uterus is normal in size The endometrium appears sonographically normal in shape and appearance The ovaries appear sonographically normal in size, shape and morphology containing simple physiologic cysts < 2 cm. No free fluid seen. Recommendation Follow-up as clinically indicated. Clinical judgement is needed to determine if further work-up is needed. Electronic Wirer: RT Jose(R), [facility] Physician: Sherrie Wheatley MD, FACOG Electronically signed by: Sherrie Wheatley MD, FACOG at: 12:54 Procedure Note Sherrie Wheatley MD - 12/31/2024 PAT NAME: RJ [facility] REC#: [id number] DA: [id number] PAT GEND: F PAT TYPE: O EXAM BOBBY: [id number] REF PHYS STACY RUIZ Indication ======== Abnormal Uterine Bleeding. BMI 41. Comparison Studies There are no relevant prior studies to which this study is beingcompared Method ======= Voluson E6, Transvaginal ultrasound examination, 3D ultrasoundexamination. View: Limited view due to patient body habitus Uterus ====== Uterus:Visualized Uterus position:Anteverted Description of uterine malformations:none Myometrium:Homogeneous Endometrium:Uniform Cervix details:Nabothian cyst noted Uterus long69 mm Uterus ap23 mm Uterus tr33 mm Uterus Vol27.6 cm Endometrial thickness, total9.8 mm Right Ovary Rt ovary:Poorly seen Rt ovary D132.9 mm Rt ovary D224.0 mm Rt ovary D320.2 mm Rt ovary Vol8.4 cm Rt ovarian follicle D113.5 mm Rt ovarian follicle D210.3 mm Rt ovarian follicle D314.5 mm Rt ovarian follicle mean12.8 mm Rt ovarian follicle vol1.058 cm Rt ovarian follicle findings:anechoic Left Ovary ========= Lt ovary:Visualized Lt ovary D125.4 mm Lt ovary D217.6 mm Lt ovary D318.70 mm Lt ovary Vol4.4 cm Lt ovarian cyst D119.2 mm Lt ovarian cyst D213.9 mm Lt ovarian cyst D313.5 mm Lt ovarian cyst mean15.5 mm Lt ovarian cyst vol1.886 cm Lt ovarian cyst findings:anechoic cyst/follicle Cul de Sac Visualized. No free fluid visualized Impression The uterus is normal in size The endometrium appears sonographically normal in shape and appearance The ovaries appear sonographically normal in size, shape and morphologycontaining simple physiologic cysts < 2 cm. No free fluid seen. Recommendation Follow-up as clinically indicated. Clinical judgement is needed to determine if further work-up is needed. Electronic Wirer: RT Jose(R), [facility] Physician: Sherrie Wheatley MD, FACOG Electronically signed by: Sherrie Wheatley MD, FACOG at: 12:54 us Stacy Ruiz HORSE BREAKER [facility] US ORDERABLES Final R esult documented in this encounter Visit Diagnoses Diagnosis Abnormal uterine bleeding (AUB)- Primary documented in this encounter Care Teams Proofer Black And White Relationship Specialty Start Date End Date Moises Gaytan MD [facility] [address] [place] [address] PCP - General Family Medicine 12/19/24 documented as of this encounter
--- OUTSIDE RECORDS SUMMARY | 2024-12-26 14:45 | XMS_ITS | Encounter Summary ---
Author Organization [facility] Address [address] [place] [address] Care Team Providers Care New Car Driver Name Role Phone Moises Gaytan MD Primary Care Provider + Reason for Visit * Reason Comments Abnormal uterine bleeding Encounter Details Date Type Department Care Team (Late st Contact Info) Description 12/26/2024 2:45 PM EDT Office Visit [facility] [address] [place] [address] Stacy Ruiz, LOGISTICS ANALYTICS MANAGER [address] [facility] [address] [place] [address] Abnormal uterine bleeding (AUB) (Primary Dx) Social [...] Sign Reading Time Taken Comments Blood Pressure 120/78 12/26/2024 2:54 PM EDT Pulse - - Temperature - - Respiratory Rate - - Oxygen Saturation - - Inhaled Oxygen Concentration - - Weight 116 kg (256 lb 12.8 oz) 12/26/2024 2:54 P M EDT Height 167.6 cm (5' 6 ) 12/26/2024 2:54 PM EDT Body Mass Index 41.45 12/26/2024 2:54 PM EDT documented in this encounter Progress Notes * Stacy Ruiz Castro, LOGISTICS ANALYTICS MANAGER - 12/26/2024 2:45 PM EDT Images from the original note were not included. Chief Complaint Patient presents with Abnormal uterine bleeding Subjective HPI Kelsie Wells is a 34 y.o. female, , Patient's last menstrual period was 12/06/2024 (exact date).. She presents for initial evaluation of AUB. The menstrual problem began with her last menstrual cycle that started on 12/06/24. She reports that she started her period and then stopped bleedingfor 2 days and spotted for 2 weeks. Then she started to have heavy bleeding that lasted for one week. She states she was having to change her pad or tampon every 1-1.5 hours on the heavy days. Normally her periods are heavy but only last for 2-3 days. She is concerned due to the length of time she has been bleeding. She reports she normally has moderate to severe cramping but did not have any cramping with her bleeding. Prior to today's visit, the patient has been evaluated: Nothing. In the past the patient has tried control pills/Nuvaring for treatment with success. The patient reportsadditional symptoms as fatigue. US was done today. 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 Last Pap : 09/29/24 LSIL , HPV pool + , HPV 16 +- led to colpo 10/21/24- mild dysplasia Last Completed Pap Smear Upcoming PAP SMEAR (Every 3 Years) Next due on 09/30/2027 09/29/2024 LIQUID-BASED PAP SMEAR WITH HPV GENOTYPING REGARDLESS OF INTERPRETATION (ABHINAV,COR,MAD) Current Outpatient Medications: FLUoxetine (PROzac) 40 MG capsule, Take 1 capsule by mouth Daily., Disp: , Rfl: Lumateperone Tosylate (Caplyta) 42 MG capsule, Take by mouth., Disp: , Rfl: omeprazole (priLOSEC) 20 MG capsule, Take 1 capsule by mouth Daily., Disp: , Rfl: ondansetron ODT (ZOFRAN-ODT) 4 MG disintegrating tablet, Place 1 tablet on the tongue Every 8 (Eight) Hours As Needed., Disp: , Rfl: 28-0.8 MG tablet, Take 1 tablet by mouth Daily. Please use formulary or generic, with DHA ideal, Disp: 28 each, Rfl: 12 Drospirenone (Slynd) 4 MG tablet, Take 1 tablet by mouth Daily., Disp: 28 tablet, Rfl: 12 Past Medical History: Diagnosis Date Anxiety Bipolar disorder Cholelithiasis Depression Migraine Recurrent loss, antepartum condition or complication Visual impairment Past Surgical History: Procedure Laterality Date WISDOM TOOTH EXTRACTION The additional following portions of the patient's history were reviewed and updated as appropriate: allergies and current medications. Review of Systems Genitourinary: Positive for menstrual problem (heavy menstruals, prolonged bleeding). I have reviewed and agree with the HPI, ROS, and historical information as entered above. Stacy Hartman APRN Objective BP 120/78 Ht 167.6 cm (66 ) Wt 116 kg (256 lb 12.8 oz) LMP 12/06/2024 (Exact Date) BMI 41.45 kg/m?? Physical Exam Constitutional: Appearance: Normal appearance. Pulmonary: Effort: Pulmonary effort is normal. Neurological: Mental Status: She is alert. Assessment & Plan Assessment Problem List Items Addressed This Visit Genitourinary and Reproductive Abnormal uterine bleeding (AUB) - Primary Overview AUB x 1 cycle. U/S endometrium 9 mm, no polyp or fibroid. Discussed cannot exclude endometrial abnormality and offered EMB but she declines and given this is the first episode of bleeding I think that is reasonable. Labs reviewed from 12/19/24 and normal. UPT negative. Will start slynd. F/U 3 months Relevant Orders POC , Urine (Completed) Plan Call for heavy bleeding Discussed potential etiologies and treatment options. Start slynd F/U 3 months Stacy Ruiz APRN 12/26/2024 documented in this encounter Plan of Treatment Upcoming Encounters Date Type Department Care Team (Late st Contact Info) Description 03/23/2025 3:45 PM EDT Office Visit [facility] [address] [place] [address] Moises Gaytan MD [address] [place] [address] 03/27/2025 2:30 PM EDT Office Visit [facility] [place] [address] Stacy Ruiz, LOGISTICS ANALYTICS MANAGER [address] [id number] 10/02/2025 11:00 AM EDT Office Visit [facility] [place] [address] Stacy Ruiz, LOGISTICS ANALYTICS MANAGER [address] [id number] documented as of this encounter Procedures Procedure Name Priority Date/Time Associated Diagnosis Comments POCT PEFORM URINE Routine 12/26/2024 3:30 PM EDT Abnormal uterine bleeding (AUB) documented in this encounter Results * POC , Urine (12/26/2024 3:30 PM EDT) HCG, Urine, QL Negative Negative [facility] Lot Number [id number] [facility] Internal Positive Control Passed Positive, Passed [facility] Internal Negative Control Negative Negative, Passed [facility] Expiration Date 02/09/26 [facility] Urine 12/26/2024 3:30 PM EDT Stacy Ruiz LOGISTICS ANALYTICS MANAGER POINT OF CARE TEST ORDERA BLES Final Result [facility]
[address] [place], [place] [address] [phone] documented in this encounter Visit Diagnoses Diagnosis Abnormal uterine bleeding (AUB)- Primary documented in this encounter Care Teams New Car Driver Relationship Specialty Start Date End Date Moises Gaytan MD [address] [place] [address] PCP - General Family Medicine 12/19/24 documented as of this encounter
--- OUTSIDE RECORDS SUMMARY | 2025-01-30 11:45 | XMS_ITS | Encounter Summary ---
[facility] Address [address] [place] [address] Care Team Providers Care Fleet Administrative Assistant Name Role Phone Moises Gaytan MD Primary Care Provider + Reason for Visit * Reason Comments dizzness, ear pain, PND and DISLA For the p ast 5 days Encounter Details Date Type Department Care Team (Late st Contact Info) Description 01/30/2025 11:45 AM EDT Office Visit [facility] [address] [place] [address] Moises Gaytan MD [address] [place] [address] Acute non-recurrent frontal sinusitis (Primary Dx) Social History Tobacco Use Types [...] Sign Reading Time Taken Comments Blood Pressure 125/75 01/30/2025 11:43 AM EDT Pulse 77 01/30/2025 11:43 AM EDT Temperature 36.3 C (97.3 F) 01/30/2025 11:43 AM EDT Respiratory Rate 20 01/30/2025 11:43 AM EDT Oxygen Saturation 99% 01/30/2025 11:43 AM EDT Inhaled Oxygen Concentration - - Weight 113 kg (249 lb 6.4 oz) 01/30/2025 11:43 A M EDT Height 167.6 cm (5' 6 ) 01/30/2025 11:43 AM EDT Body Mass Index 40.25 01/30/2025 11:43 AM EDT documented in this encounter Progress Notes * Moises Gaytan MD - 01/30/2025 11:45 AM EDT Chief Complaint Patient presents with dizzness, ear pain, PND and DISLA For the past 5 days Subjective Kelsie Wells is a 34 y.o. who presents for 5 days of fronta headache, nasal and throat congestion, and bilateral ear pain. She denies fevers Objective Vital Signs: BP 125/75 Pulse 77 Temp 97.3 ??F (36.3 ??C) Resp 20 Ht 167.6 cm (66 ) Wt 113 kg (249 lb 6.4 oz) SpO2 99% BMI 40.25 kg/m?? Physical Exam Constitutional: Appearance: Normal appearance. HENT: Head: Normocephalic and atraumatic. Right Ear: Tympanic membrane and ear canal normal. Left Ear: Tympanic membrane and ear canal normal. Ears: Comments: Left ear canal is mildly erythematous from trauma Nose: Congestion present. Comments: Frontal and maxillary sinus tenderness bilaterally Mouth/Throat: Mouth: Mucous membranes are moist. Pharynx: Oropharynx is clear. Posterior oropharyngeal erythema present. Comments: Clear postnasal drip Eyes: Conjunctiva/sclera: Conjunctivae normal. Cardiovascular: Rate and Rhythm: Normal rate and regular rhythm. Heart sounds: Normal heart sounds. No murmur heard. Pulmonary: Effort: Pulmonary effort is normal. No respiratory distress. Breath sounds: Normal breath sounds. Musculoskeletal: Cervical back: Normal range of motion and neck supple. No tenderness. Lymphadenopathy: Cervical: No cervical adenopathy. Skin: General: Skin is warm and dry. Neurological: Mental Status: She is alert. Psychiatric: Mood and Affect: Mood normal. Result Review Assessment and Plan Diagnoses and all orders for this visit: 1. Acute non-recurrent frontal sinusitis (Primary) - pseudoephedrine (SUDAFED) 60 MG tablet; Take 1 tablet by mouth Every 6 (Six) Hours As Needed for Congestion. Dispense: 30 tablet; Refill: 0 - amoxicillin (AMOXIL) 500 MG capsule; Take 2 capsules by mouth 2 (Two) Times a Day. Dispense: 28 capsule; Refill: 0 - naproxen (Naprosyn) 500 MG tablet; Take 1 tablet by mouth 2 (Two) Times a Day With Meals. Dispense: 60 tablet; Refill: 0 MDM: New problem requiring prescription medication Follow Up No follow-ups on file. Patient was given instructions and counseling regarding her condition or for health maintenance advice. Please see specific information pulled into the AVS if appropriate. documented in this encounter Plan of Treatment Upcoming Encounters Date Type Department Care Team (Late st Contact Info) Description 03/23/2025 3:45 PM EDT Office Visit [facility] [address] [place] [address] Moises Gaytan MD [address] [place] [address] 504- 03/27/2025 2:30 PM EDT Office Visit [facility] [address] [place] [address] Stacy Ruiz, LAP GRINDER [address] [facility] [address] 10/02/2025 11:00 AM EDT Office Visit [facility] [address] [place] [address] Stacy Ruiz, LAP GRINDER [address] [address] documented as of this encounter Visit Diagnoses Diagnosis Acute non-recurrent frontal sinusitis- Primary documented in this encounter Care Teams Fleet Administrative Assistant Relationship Specialty Start Date End Date Moises Gaytan MD [address] [place] [address] PCP - General Family Medicine 12/19/24 documented as of this encounter
[2025-02-15 20:23] LABS: HCG Qualitative, Serum Negative (Negative)
--- OUTSIDE RECORDS SUMMARY | 2025-02-16 10:30 | XMS_ITS | Clinical Summary ---
Author Organization [facility] Address [address] [place] [address] Care Team Providers Care Regional Intermodal Truck Driver Name Role Phone Moises Gaytan MD Primary Care Provider + Allergies Active Allergy Reactions Criticality Noted Date Comments Latex Swelling High 04/29/2022 Medications 28-0.8 MG tablet Take 1 tablet by mouth Daily. Please use formulary or generic, with DHA ideal 28 each 12 4 Active omeprazole (priLOSEC) 20 MG capsule Take 1 capsule by mouth Daily. 5 Active FLUoxetine (PROzac) 40 MG capsule Take 1 capsule by mouth Daily. 5 Active ondansetron ODT (ZOFRAN-ODT) [address] 1 tablet on the tongue Every 8 (Eight) Hours As Needed. Active Lumateperone Tosylate (Caplyta) 42 MG capsule Take by mouth. Active Drospirenone (Slynd) 4 MG tablet Take 1 tablet by mouth Daily. 28 tablet 12 5 Active fluticasone (FLONASE) 50 MCG/ACT nasal spray USE 2 SPRAY(S) IN EACH NOSTRIL ONCE DAILY FOR 10 DAYS 5 Active loratadine (CLARITIN) 10 MG tablet Take 1 tablet by mouth Daily. 5 Active pseudoephedrine (SUDAFED) 60 MG tabletIndications: Acute non-recurrent frontal sinusitis Take 1 tablet by mouth Every 6 (Six) Hours As Needed for Congestion. 30 tablet 5 Active amoxicillin (AMOXIL) 500 MG capsuleIndications :Acute non-recurrent frontal sinusitis Take 2 capsules by mouth 2 (Two) Times a Day. 28 capsule 5 Active naproxen (Naprosyn) 500 MG tabletIndications: Acute non-recurrent frontal sinusitis Take 1 tablet by mouth 2 (Two) Times a Day With Meals. 60 tablet 5 Active Active Problems Problem Noted Date Diagnosed Date Abnormal uterine bleeding (AUB) 12/26/2024 Overview (12/26/2024): AUB x 1 cycle. U/S endometrium 9 mm, no polyp or fibroid. Discussed cannot exclude endometrial abnormality and offered EMB but she declines and given this is the first episode of bleeding I think that is reasonable. Labs reviewed from 12/19/24 and normal. UPT negative. Will start slynd. F/U 3 months Metabolic syndrome 12/20/2024 Iron deficiency anemia secon angel to inadequate dietary iron intake 12/19/2024 Class 3 severe obesity due t o excess calories without serious comorbidity with body mass index (BMI) of 40.0 to 44.9 in adult 12/19/2024 Encounters Date Type Department Care Team Description 01/30/2025 11:45 AM EDT Office Visit [facility] [address] [address] Moises Gaytan MD Acute non-recurrent frontal sinusitis (Primary Dx) 01/30/2025 Travel 12/28/2024 Patient rounding ([facility] only) [facility] [address] [address] Catina Fernandez 12/26/2024 2:45 PM EDT Office Visit [facility] [address] [address] Stacy Ruiz APRN Abnormal uterine bleeding (AUB) (Primary Dx) 12/26/2024 2:30 PM EDT Ancillary Procedure [facility] [address] [address] Abnormal uterine bleeding (AUB) (Primary Dx) 12/26/2024 Travel 12/22/2024 11:00 AM EDT Clinical Support [facility] [address] [address] Immunization due (Primary Dx) 12/22/2024 Travel 12/20/2024 Results Follow-Up [facility] [address] [place] [address] Moises Gaytan MD Results (PT CALLED- CONFUSED ON RESULTS) 12/20/2024 Telephone [facility] [address] [place] [address] Moises Gaytan MD Results 12/19/2024 3:15 PM EDT Office Visit [facility] [address] [place] [address] Moises Gaytan MD Polyuria (Primary Dx); Polydipsia; Class 3 severe obesity due to excess calories without serious comorbidity with body mass index (BMI) of 40.0 to 44.9 in adult; Family history of diabetes mellitus; Loud snoring; Unrefreshed by sleep; Hypersomnolence; Screening cholesterol level 12/19/2024 Telephone [facility] [address] [place] [address] Stacy Ruiz, REHAB LIAISON Advice Only 12/19/2024 Travel from Last 3 Months Immunizations Immunization Administration Dates Next Due Hpv9 12/22/2024,10/21/2024 Tdap 10/13/2023,01/06/2018 Family History Medical History Relation Name Comments Cancer Father Leny ríos Lung cancer Maternal Aunt Anxiety disorder Mother October Depression Mother October Diabetes Mother October Heart disease Mother October Hypertension Mother October Obesity Mother October Vision loss Mother October Relation Name Status Comments Father Leny ríos Alive Maternal Aunt Mother October Social History Tobacco Use Types Packs/Day Years [...] on file Sexual Orientation Not on file Last Filed Vital Signs Vital Sign Reading [...] Mass Index 40.25 01/30/2025 11:43 AM EDT Plan of Treatment Upcoming Encounters Date Type Department Care Team (Late st Contact Info) Description 03/23/2025 3:45 PM EDT Office Visit [facility] [address] [place] [address] Moises Gaytan MD [address] [place] [address] 03/27/2025 2:30 PM EDT Office Visit [facility] [address] [place] [address] Stacy Ruiz, REHAB LIAISON [address] [address] 10/02/2025 11:00 AM EDT Office Visit [facility] [address] [place] [address] Stacy Ruiz, REHAB LIAISON [address] [place] [address] Health Maintenance Due Date Last Done Comments Pneumococcal Vaccine 0-49 (1 of 2 - PCV) 2010 HEPATITIS C SCREENING 01/15/2017 COVID-19 Vaccine (1 - season) 2024 INFLUENZA VACCINE 04/19/2025 Annual Gynecologic Pelvic and Breast Exam 09/30/2025 09/29/2024 ANNUAL PHYSICAL 12/19/2025 12/19/2024 PAP SMEAR 09/30/2027 09/29/2024 TDAP/TD VACCINES (3 - Td or Tdap) 10/12/2033 024, 01/06/2018 Procedures Procedure Name Priority Date/Time Associated Diagnosis Comments POCT PEFORM URINE Routine 12/26/2024 3:30 PM EDT Abnormal uterine bleeding (AUB) US NON-OB TRANSVAGINAL Routine 12/26/2024 3:01 PM EDT Abnormal uterine bleeding (AUB) COMPREHENSIVE METABOLIC PANEL Routine 12/19/2024 2:51 PM [...] in adult Family history of diabetes mellitus TSH RFX ON ABNORMAL TO FREE T4 Routine 12/19/2024 2:51 PM EDT Polyuria Polydipsia Class 3 severe obesity due to excess calories without serious comorbidity with body mass index (BMI) of 40.0 to 44.9 in adult LIPID PANEL Routine 12/19/2024 2:51 PM EDT Class 3 severe obesity due to excess calories without serious comorbidity with body mass index (BMI) of 40.0 to 44.9 in adult Screening cholesterol level CBC (NO DIFF) Routine 12/19/2024 2:51 PM EDT Class 3 severe obesity due to excess calories without serious comorbidity with body mass index (BMI) of 40.0 to 44.9 in adult POCT URINALYSIS DIPSTICK, MANUAL Routine 12/19/2024 2:48 PM EDT Polyuria LIQUID-BASED PAP SMEAR WITH HPV GENOTYPING REGARDLESS OF INTERPRETATION, [facility] (ABHINAV,COR,MAD) Routine 09/29/2024 11:35 AM EDT Women's annual routine gynecological examination from Last 3 Months or Most Recently Relevant to Health Maintenance Results * POC , Urine (12/26/2024 3:30 PM EDT) HCG, Urine, QL Negative Negative [facility] Lot Number [id number] [facility] Internal Positive Control Passed Positive, Passed [facility] Internal Negative Control Negative Negative, Passed [facility] Expiration Date 02/09/26 [facility] Urine 12/26/2024 3:30 PM EDT Stacy Ruiz APRN POINT OF CARE TEST ORDERA BLES Final Result [facility]
[address] [place] [address], * US Non-ob Transvaginal (12/26/2024 3:01 PM EDT) Anatomical Region Laterality Modality Body Ultrasound 12/26/2024 2:28 PM EDT Narrative 12/31/2024 12:54 PM EDT [id number] DA: [id number] PAT GEND: F PAT TYPE: O EXAM BOBBY: [id number] REF STACY GARCIA Indication ======== Abnormal Uterine Bleeding. BMI 41. [...] to determine if further work-up is needed. Nursing Informatics Clinical Analyst: Arely Adkins RT(R), RDMS Physician: Sherrie Wheatley MD, FACOG Electronically signed by: Sherrie Wheatley MD, FACOG at: 12:54 Procedure Note Sherrie Wheatley MD - 12/31/2024 PAT NAME: [facility]J [facility] REC#: [id number] DA: 1990 PAT GEND: F PAT TYPE: O EXAM BOBBY: [id number] REF PHYS STACY RUIZ Indication ======== Abnormal [...] to determine if further work-up is needed. Nursing Informatics Clinical Analyst: Arely Adkins RT(R), RDTX Physician: Sherrie Wheatley MD, FACOG Electronically signed by: Sherrie Wheatley MD, FACOG at: 12:54 Stacy Ruiz REHAB LIAISON IMG US ORDERABLES Final R esult * TSH Rfx On Abnormal To Free T4 (12/19/2024 2:51 PM EDT) TSH 2.420 0.450 - 4.500 uIU/mL [facility] Blood 12/19/2024 2:51 PM EDT 12/19/2024 Narrative [facility] ([facility]) - 12/20/2024 9:10 AM EDT Performed at: - [address] [id number] Supervisor Electronic Testing: Ming Mackay PhD, Phone: [phone] Patient Fasting: Y Moises Gaytan MD LAB BLOOD ORDERABLES Fin al Result [facility] ([facility]) [address] [place] [address], [facility] [address] [place] [address], * CBC (No Diff) (12/19/2024 2:51 PM EDT) WBC 7.4 3.4 - 10.8 x10E3/uL [facility] [...] 12/20/2024 9:10 AM EDT Performed at: - [address] [id number] Supervisor Electronic Testing: Ming Mackay PhD, Phone: [phone] Patient Fasting: Y Moises Gayatn MD LAB BLOOD ORDERABLES Fin al Result Performing Organization Address [facility] Co de Phone Number [facility] ([facility]) [address] [place] [address], [place] [phone] [facility] [address] [place] [address], [place] [phone] * Hemoglobin A1c (12/19/2024 2:51 PM EDT) [facility] Hemoglobin A1C 5.5 4.8 - 5.6 % [facility] Comment: Prediabetes: 5.7 - 6.4 Diabetes: >6.4 Glycemic control for adults with diabetes: <7.0 Blood 12/19/2024 2:51 PM EDT 12/19/2024 Narrative [facility] ([facility]) - 12/20/2024 9:10 AM EDT Performed at: Lab[address] [id number] Supervisor Electronic Testing: Ming Mackay PhD, Phone: [phone] Patient Fasting: Y Moises Gaytan MD LAB BLOOD ORDERABLES Fin al Result Performing Organization Address [facility] Co de Phone Number [facility] ([facility]) [address] [place] [address], [facility] [address] [place] [address], * (ABNORMAL) Lipid Panel (12/19/2024 2:51 PM EDT) Total Cholesterol 227(H) 100 - 199 mg/dL [facility] Triglycerides 221(H) 0 - 149 mg/dL [facility] HDL Cholesterol 29(L) >39 mg/dL [facility] VLDL Cholesterol [place] 41(H) 5 - 40 mg/dL [facility] LDL Chol Calc (NIH) 157(H) 0 - 99 mg/dL [facility] Blood 12/19/2024 2:51 PM EDT 12/19/2024 Narrative [facility] (AMBULATORY) - 12/20/2024 9:10 AM EDT [facility]formed at: - [facility] [address] [place], [place] [id number] Supervisor Electronic Testing: Ming Mackay PhD, Phone: [phone] Patient Fasting: Y Moises Gaytan MD LAB BLOOD ORDERABLES Fin al Result [facility] [address] [place] [address], [facility] [address] [place] [address], * (ABNORMAL) Comprehensive Metabolic Panel (12/19/2024 2:51 [...] Blood 12/19/2024 2:51 PM EDT 12/19/2024 [facility]ative [facility] - 12/20/2024 9:10 AM EDT Performed at: [address] [place] [id number] Supervisor Electronic Testing: Ming Mackay PhD, Phone: [phone] Patient Fasting: Y us Moises Gaytan MD LAB BLOOD ORDERABLES Fin al Result [facility] [address] [place] [address], [facility] [address] [place] [address], * (ABNORMAL) POC Urinalysis Dipstick (12/19/2024 2:48 PM EDT) Color Red(A) Yellow, Straw, Dark Yellow, Kasia [facility] Clarity, UA Clear Clear [facility] Glucose, UA Negative Negative mg/dL [facility] Bilirubin Negative Negative [facility] Ketones, UA Negative Negative [facility] Specific [place] 1.015 1.005 - 1.030 [facility] Blood, UA 3+(A) Negative [facility] pH, Urine 6.0 5.0 - 8.0 [facility] Protein, POC 2+(A) Negative mg/dL [facility] Urobilinogen, UA Normal Normal, 0.2 E.U./dL [facility] Leukocytes Trace(A) Negative [facility] Nitrite, UA Negative Negative [facility] Urine 12/19/2024 2:48 PM EDT Moises Gaytan MD POINT OF CARE TEST ORDER JAYLEN Final Result [facility]
[address] [place] [address], * LIQUID-BASED PAP SMEAR WITH HPV GENOTYPING REGARDLESS OF INTERPRETATION (ABHINAV,COR,MAD) (09/29/2024 11:35 AM EDT) Reference Lab Report [facility] [address] [place] [address] or [phone] Camden Urbina M.D., Communications Scientist PATIENT NAME LABORATORY NO. [id number] PAULINO [id number] AGE SEX SSN CLIENT REF # [facility] 34 1990 F [id number] Caroline LORA REQUESTING Shai. [place] [address] STACY RUIZ DATE COLLECTED DATE RECEIVED DATE REPORTED 09/29/2024 09/29/2024 10/04/2024 ThinPrep Pap with Cytyc Imaging DIAGNOSIS: Epithelial cell abnormality. (LSIL) Low Grade Squamous Intraepithelial Lesion: Mild dysplasia and/or HPV effect (BRANDO I). A higher grade lesion cannot be excluded. Professional interpretation rendered by Shabnam Miller D.O., F.C.A.P. at [facility] [employer], [address] [place] [address]. SPECIMEN ADEQUACY: SATISFACTORY FOR EVALUATION Transformation zone is present. SOURCE OF SPECIMEN: CERVICAL SLIDES: 1 CLINICAL HISTORY: Women's annual routine gynecological examination HPV HR-HPV POOL: Positive The Aptima HPV assay is an in vitro nucleic acid amplification test for the qualitative detection of E6/E7 viral messenger RNA from 14 high risk types of HPV in cervical specimens. The high risk HPV types detected include: 16, 18, 31, 33, 35, 39, 45, 51, 52, 56, 58, 59, 66, 68 HPV Genotyping HPV 16: Positive HPV 18/45: Negative The Aptima HPV 16, 18/45 genotype assay is an in vitro nucleic acid amplification test for the qualitative detection of E6/E7 viral messenger RNA of human papillomavirus (HPV) types 16,18/45 in cervical specimens from women with Aptima HPV positive results. The Aptima HPV 16, 18/45 genotype assay can differentiate HPV 16 from HPV 18 and/or HPV 45, but does not differentiate between HPV 18 and HPV 45. WINDOWS DESKTOP SUPPORT: KAYLA CARTAGENA (ASCP) REVIEWED, DIAGNOSED AND ELECTRONICALLY SIGNED BY: Shabnam Miller D.O., F.C.A.P. CPT CODES: [id number], [id number], [id number], [id number] 10/04/2024 11:18 AM EDT [facility] ThinPrep Vial Collection / Unknown 09/29/2024 11:35 AM EDT 09/29/2024 11:35 AM EDT Stacy Ruiz REHAB LIAISON PATHOLOGY/CYTOLOGY ORDERA BLES Final Result [facility]
[address] [place] [address], from Last 3 Months or Most Recently Relevant to Health Maintenance Insurance [facility] MEDICAID Care Teams Regional Intermodal Truck Driver Relationship Specialty Start Date End Date Moises Gaytan MD [address] [place] [address] PCP - General Family Medicine 12/19/24
--- OUTSIDE RECORDS SUMMARY | 2025-02-16 10:30 | XMS_ITS | Encounter Summary ---
Author Organization [facility] yste Address [address] [place] [address] Care Team Providers Care Steam Plant Control Room Operator Name Role Phone Moises Gaytan MD Primary Care Provider + Encounter Details Date Type Department Care Team (Latest Contact Info) Description 01/30/2025 Travel Social History Tobacco Use Types Packs/Day Years [...] Description 03/23/2025 3:45 PM EDT Office Visit [facility] [address] [place] [address] Moises Gaytan MD [address] [place] [address] 03/27/2025 2:30 PM EDT Office Visit [facility] [address] [place] [address] Stacy Ruiz M, GAS DERRICK OPERATOR 1700 [facility] [address] [place], [place] [id number] 10/02/2025 11:00 AM EDT Office Visit [facility] [address] [place] [address] Stacy Ruiz, GAS DERRICK OPERATOR 1700 [facility] [address] [place] [address] documented as of this encounter Visit Diagnoses Not on filedocumented in this encounter Care Teams Steam Plant Control Room Operator Relationship Specialty Start Date End Date Moises Gaytan MD [address] [place] [address] PCP - General Family Medicine 12/19/24 documented as of this encounter
--- OUTSIDE RECORDS SUMMARY | 2025-02-16 10:30 | XMS_ITS | Encounter Summary ---
Author Organization [facility] yste Address [address] [place] [address] Care Team Providers Care Underwriting Analyst Name Role Phone Moises Gaytan MD Primary Care Provider + Encounter Details Date Type Department Care Team (Late st Contact Info) Description 11/12/2024 Results Follow-Up [facility] [address] [place] [address] Sherrie Wheatley MD 1700 [facility] [address] [place] [place] [address] Social History Tobacco Use Types Packs/Day Years Used Date Smoking Tobacco: Every Day Cigarettes Smokeless Tobacco: Never Alcohol Use Standard Drinks/Week Comments Not Currently 0 (1 standard drink = 0.6 oz pur e alcohol) Comments No Sex and Gender Information Value Date Recorded Sex Assigned at Not on file Legal Sex Female 9:58 AM EDT Gender Identity Not on file Sexual Orientation Not on file documented as of this encounter Plan of Treatment Upcoming Encounters Date Type Department Care Team (Late st Contact Info) Description 03/23/2025 3:45 PM EDT Office Visit [facility] [address] [place] [address] Moises Gaytan MD [address] [address] 03/27/2025 2:30 PM EDT Office Visit [facility] [address] [place] [address] Stacy Ruiz, RECREATIONAL RESORT MANAGER 1700 [facility] [address] [place] [address] 10/02/2025 11:00 AM EDT Office Visit [facility] [address] [place] [address] Stacy Ruiz, RECREATIONAL RESORT MANAGER 1700 [facility] [address] [place], [place] [id number] documented as of this encounter Visit Diagnoses Not on filedocumented in this encounter Care Teams Underwriting Analyst Relationship Specialty Start Date End Date Moises Gaytan MD [address] [place] [address] PCP - General Family Medicine 12/19/24 documented as of this encounter
--- OUTSIDE RECORDS SUMMARY | 2025-02-16 10:30 | XMS_ITS | Encounter Summary ---
Author Organization [facility] ystem Address [address] [place] [address] Care Team Providers Care Feed Elevator Worker Name Role Phone Moises Gaytan MD Primary Care Provider + Encounter Details Date Type Department Care Team (Late st Contact Info) Description 10/04/2024 Results Follow-Up [facility] [address] [place] [address] Stacy Ruiz, MEDICAL TECHNOLOGIST CLINICAL 1700 [facility] [address] [place] [address] Social History Tobacco Use Types Packs/Day Years [...] [facility] [address] [place] [address] Moises Gaytan MD [address] [place] [address] 03/27/2025 2:30 PM EDT Office Visit [facility] [address] [place] [address] Stacy Ruiz, MEDICAL TECHNOLOGIST CLINICAL 1700 [facility] [address] [place] [address] 10/02/2025 11:00 AM EDT Office Visit [facility] [address] [place] [address] Stacy Ruiz, MEDICAL TECHNOLOGIST CLINICAL 17[address] [facility] [address] [place], [place] [id number] documented as of this encounter Visit Diagnoses Not on filedocumented in this encounter Care Teams Feed Elevator Worker Relationship Specialty Start Date End Date Moises Gaytan MD [address] [place] [address] PCP - General Family Medicine 12/19/24 documented as of this encounter
--- OUTSIDE RECORDS SUMMARY | 2025-02-16 10:30 | XMS_ITS | Encounter Summary ---
Author Organization [facility] yste Address [address] [place] [address] Care Team Providers Care Editing Clerk Name Role Phone Moises Gaytan MD Primary Care Provider + Encounter Details Date Type Department Care Team (Late st Contact Info) Description 12/28/2024 Patient rounding ([facility]) [facility] [address] [place] [address] Catina Fernandez Social History Tobacco Use Types Packs/Day Years [...] on file documented as of this encounter Progress Notes * Catina Fernandez - 12/28/2024 11:22 AM EDT A My-Chart message has been sent to the patient for PATIENT ROUNDING with [facility]. documented in this encounter Plan of Treatment Upcoming Encounters Date Type Department Care Team (Late st Contact Info) Description 03/23/2025 3:45 PM EDT Office Visit [facility] [address] [place] [address] Moises Gaytan MD [address] [place] [address] 03/27/2025 2:30 PM EDT Office Visit [facility] [address] [place] [address] Stacy Ruiz, COMMUNICABLE DISEASE SPECIALIST 1700 [facility] [address] [place] [phone] 10/02/2025 11:00 AM EDT Office Visit [facility] [address] [place] [address] Stacy Ruiz, COMMUNICABLE DISEASE SPECIALIST [address] [id number] documented as of this encounter Visit Diagnoses Not on filedocumented in this encounter Care Teams Editing Clerk Relationship Specialty Start Date End Date Moises Gaytan MD [address] [place] [address] PCP - General Family Medicine 12/19/24 documented as of this encounter
--- OUTSIDE RECORDS SUMMARY | 2025-02-16 10:30 | XMS_ITS | Encounter Summary ---
Author Organization [facility] yste Address [address] [place] [address] Care Team Providers Care Salt Washer Name Role Phone Moises Gaytan MD Primary Care Provider + Encounter Details Date Type Department Care Team (Latest Contact Info) Description 12/22/2024 Travel Social History Tobacco Use Types Packs/Day [...] Description 03/23/2025 3:45 PM EDT Office Visit [facility] [address] [place] [address] Moises Gaytan MD [address] [place] [address] 03/27/2025 2:30 PM EDT Office Visit [facility] [address] [place] [address] Stacy Ruiz M, MEDICAL SCIENTIST 1700 [facility] [address] [place], [place] [phone] 10/02/2025 11:00 AM EDT Office Visit [facility] [address] [place] [address] Stacy Ruiz, MEDICAL SCIENTIST 1700 [facility] [address] [place] [address] documented as of this encounter Visit Diagnoses Not on filedocumented in this encounter Care Teams Salt Washer Relationship Specialty Start Date End Date Moises Gaytan MD [address] [place] [address] PCP - General Family Medicine 12/19/24 documented as of this encounter
--- OUTSIDE RECORDS SUMMARY | 2025-02-16 10:30 | XMS_ITS | Encounter Summary ---
Author Organization [facility] yste Address [address] [place] [address] Care Team Providers Care Student Life Dean Name Role Phone Moises Gaytan MD Primary Care Provider + Encounter Details Date Type Department Care Team (Latest Contact Info) Description 12/26/2024 Travel Social History Tobacco Use Types Packs/Day [...] Description 03/23/2025 3:45 PM EDT Office Visit [facility] [address] [place] [address] Moises Gaytan MD [address] [place] [address] 03/27/2025 2:30 PM EDT Office Visit [facility] [address] [place] [address] Stacy Ruiz M, MEMBERSHIP ASSISTANT [address] [facility] [address] [place], [place] [id number] 10/02/2025 11:00 AM EDT Office Visit [facility] [address] [place] [address] Stacy Ruiz, MEMBERSHIP ASSISTANT [address] [facility] [address] [place] [address] documented as of this encounter Visit Diagnoses Not on filedocumented in this encounter Care Teams Student Life Dean Relationship Specialty Start Date End Date Moises Gaytan MD [address] [place] [address] PCP - General Family Medicine 12/19/24 documented as of this encounter
--- OUTSIDE RECORDS SUMMARY | 2025-02-16 10:31 | XMS_ITS | Encounter Summary ---
Author Organization [facility] yste Address [address] [place] [address] Care Team Providers Care Rn Birthing Name Role Phone Moises Gaytan MD Primary Care Provider + Reason for Visit * Reason Onset Date Comments Advice Only 12/19/2024 Encounter Details Date Type Department Care Team (Late st Contact Info) Description 12/19/[address] [facility] [address] [place] [address] Stacy Ruiz, VENDING MACHINE COLLECTOR [address] [facility] [address] [place] [address] Advice Only Social History Tobacco Use Types Packs/Day Years [...] on file documented as of this encounter Functional Status documented as of this encounter Miscellaneous Notes * Telephone Encounter - Inés Reese RN - 12/19/2024 5:36 PM EDT Spoke with patient. She states that she started her normal period on 12/06/24. She states she was spotted for 2 weeks. Then she stopped spotting for 2 days and then started to have heavy bleeding. Sheis currently on day 3 of heavy bleeding. She states she has been having to change her pad or tamponevery 1-1.5 hours. She denies any pain or cramping. Advised patient that she should report to the ER if she is saturating through a pad or tampon in an hour or less. Or if she develops severe pain orcramping. She VU. Patient scheduled to see Kaci on 12/26/24 with US. * Telephone Encounter - Julisa Dumas RegSched Rep - 12/19/2024 3:38 PM EDT Caller: WellsKelsie Relationship: Self Best call back number: [phone] Who are you requesting to speak with (clinical staff, STACY RUIZ, SHAQ What was the call regarding: PATIENT ADVISED THAT SHE HAD A PERIOD, THEN SPOTTED, NOW BLEEDING AGAIN, WENT THROUGH A PAD IN AN HOUR. HUB ADVISED PT TO GO TO ER. PATIENT ADVISED THAT SHE WOULD LIKE [facility] SEEN ON 12/22/24 THE SAME DAY THAT SHE WILL BE HERE FOR HER INJECTION, PLEASE ASSIST AND ADVISE. documented in this encounter Plan of Treatment Upcoming Encounters Date Type Department Care Team (Late st Contact Info) Description 03/23/2025 3:45 PM EDT Office Visit [facility] [address] [place] [address] Moises Gaytan MD [address] [place] [address] 03/27/2025 2:30 PM EDT Office Visit [facility] [address] [place] [address] Stacy Ruiz, VENDING MACHINE COLLECTOR [address] [place] [address] 10/02/2025 11:00 AM EDT Office Visit [facility] [address] [place] [id number] Stacy Ruiz, VENDING MACHINE COLLECTOR [address] [facility] [address] [place] [address] documented as of this encounter Visit Diagnoses Not on filedocumented in this encounter Care Teams Rn Birthing Relationship Specialty Start Date End Date Moises Gaytan MD [address] [place] [address] PCP - General Family Medicine 12/19/24 documented as of this encounter
--- OUTSIDE RECORDS SUMMARY | 2025-02-16 10:31 | XMS_ITS | Encounter Summary ---
[facility] [address] [place] [address] Care Team Providers Care Servicenow Administrator Developer Name Role Phone Moises Gaytan MD Primary Care Provider + Reason for Visit * Reason Onset Date Comments Results 12/20/2024 PT CALLED- CONFU SED ON RESULTS Encounter Details Date Type Department Care Team (Late st Contact Info) Description 12/20/2024 Results Follow-Up [facility] [address] [place] [address] Moises Gaytan MD [address] [place] [address] Results (PT CALLED- CONFUSED ON RESULTS) Social History Tobacco Use Types Packs/Day Years [...] on file documented as of this encounter Miscellaneous Notes * Telephone Encounter - Laura Flores RegSched Rep - 12/21/2024 3:43 PM EDT PT CALLED- CONFUSED ON RESULTS. READ HER THE NOTE FROM THE PCP, GOT HER A FUP APPT SCHEDULED. SHE IS IN GOOD UNDERSTANDING OF RESULTS NOW. documented in this encounter Plan of Treatment Upcoming Encounters Date Type Department Care Team (Late st Contact Info) Description 03/23/2025 3:45 PM EDT Office Visit [facility] [address] [place] [address] Moises Gaytan MD [address] [place] [address] 03/27/2025 2:30 PM EDT Office Visit [facility] [address] [place] [address] Stacy Ruiz, FOOD HANDLER [address] [address] 10/02/2025 11:00 AM EDT Office Visit [facility] [address] [place] [address] Stacy Ruiz, FOOD HANDLER [address] [address] documented as of this encounter Visit Diagnoses Not on filedocumented in this encounter Care Teams Servicenow Administrator Developer Relationship Specialty Start Date End Date Moises Gaytan MD [address] [place] [address] PCP - General Family Medicine 12/19/24 documented as of this encounter
--- OUTSIDE RECORDS SUMMARY | 2025-02-16 10:31 | XMS_ITS | Encounter Summary ---
Author Organization [facility] yste Address [address] [place] [address] Care Team Providers Care Compliance Investigator Name Role Phone Moises Gaytan MD Primary Care Provider + Encounter Details Date Type Department Care Team (Latest Contact Info) Description 12/19/2024 Travel Social History Tobacco Use Types Packs/Day [...] Functional Status documented as of this encounter Plan of Treatment Upcoming Encounters Date Type Department Care Team (Late st Contact Info) Description 03/23/2025 3:45 PM EDT Office Visit [facility] [address] [place] [address] Moises Gaytan MD [address] [place] [address] 03/27/2025 2:30 PM EDT Office Visit [facility] [address] [place] [address] Stacy Ruiz, UROLOGIST MD [address] [place] [id number] 10/02/2025 11:00 AM EDT Office Visit [facility] [address] [place] [address] Stacy Ruiz, UROLOGIST MD [address] [facility] [address] [place] [address] documented as of this encounter Visit Diagnoses Not on filedocumented in this encounter Care Teams Compliance Investigator Relationship Specialty Start Date End Date Moises Gaytan MD [address] [place] [address] PCP - General Family Medicine 12/19/24 documented as of this encounter
--- OUTSIDE RECORDS SUMMARY | 2025-02-16 10:31 | XMS_ITS | Encounter Summary ---
[facility] [address] [place] [id number] Care Team Providers Care Gun Perforator Loader Name Role Phone Moises Gaytan MD Primary Care Provider + Reason for Visit * Reason Onset Date Comments Results 12/20/2024 Encounter Details Date Type Department Care Team (Late st Contact Info) Description 12/20/2024 Telephone [facility] [address] [place] [address] Moises Gaytan MD [address] [place] [address] Results Social History Tobacco Use Types Packs/Day Years [...] encounter Miscellaneous Notes * Telephone Encounter - Quin Baeza RegSched Rep - 12/20/2024 11:53 AM EDT Caller: Kelsie Wells Relationship: Self Best call back number: [phone] What test was performed: BLOOD WORK When was the test performed: 12/19/24 Where was the test performed: IN OFFICE Additional notes: documented in this encounter Plan of Treatment Upcoming Encounters Date Type Department Care Team (Late st Contact Info) Description 03/23/2025 3:45 PM EDT Office Visit [facility] [address] [place] [address] Moises Gaytan MD [address] [place] [address] 03/27/2025 2:30 PM EDT Office Visit [facility] [address] [place] [address] Stacy Ruiz, CALENDER LET OFF HELPER [address] [facility] [address] [place] [address] 10/02/2025 11:00 AM EDT Office Visit [facility] [address] [place] [address] Stacy Ruiz, CALENDER LET OFF HELPER [address] [address] documented as of this encounter Visit Diagnoses Not on filedocumented in this encounter Care Teams Gun Perforator Loader Relationship Specialty Start Date End Date Moises Gaytan MD [address] [place] [address] PCP - General Family Medicine 12/19/24 documented as of this encounter
== END 2025-02-15 23:59 | disposition home or self-care (01) ==
LOC: LAB.DROPOF 02-16 10:26
PROVIDERS: PCP Student in an Organized Health Care Education/Training Program; Visit Provider Student in an Organized Health Care Education/Training Program
DX: N92.6 Irregular menstruation, unspecified (principal)
CPT/HCPCS: 84703